=== PATIENT | female | born 1945 | race Caucasian/White ===

== ENCOUNTER → 2020-01-07 | Outpatient (CLI) | payer OTHER, MEDICARE ==
[~2020-01-07] MED LIST: ASPIR-TRIN325 MG PO; ATENOLOL 50MG T50 M1 PO; CARVEDILOL12.5 MG PO; DILTIAZEM 24HR240 M1 PO; ELIQUIS5 MG PO; KLOR-CON 1010 MEQ PO; METFORMIN HCL500 M1 PO; PACERONE 200 M200 M1 PO; TORSEMIDE20 MG PO
== END ==
LOC: SJCVC 11:33
DX: I45.10 Unspecified right bundle-branch block (principal); R94.31 Abnormal electrocardiogram [ECG] [EKG]; I48.0 Paroxysmal atrial fibrillation; I11.0 Hypertensive heart disease with heart failure; I50.33 Acute on chronic diastolic (congestive) heart failure; E78.5 Hyperlipidemia, unspecified; E11.9 Type 2 diabetes mellitus without complications; Z79.82 Long term (current) use of aspirin; Z79.899 Other long term (current) drug therapy

== ENCOUNTER 2020-01-09 11:24 | Inpatient (IN) | payer OTHER, MEDICARE ==
[~2020-01-09] VITALS: Ht 154.9 cm; Wt 69.0 kg
[2020-01-09] VITALS (29 sets, daily range): BP systolic 72–141; BP diastolic 24–77
--- NOTE | ~2020-01-09 | HC ---
[facility] [place] [address] CONSULTATION Name: JOSHUA MCCLOUD Room #: 241-P [facility] IN .R.#: [id number] Admission: 01/09/20 Attend Phys: Alphonse Cross MD Discharge: Date of : 41 Report #: [id number] THIS REPORT FOR: cc: Georgette West MD,Russ Prieto MD, MD ~ CC: Alphonse West DATE OF SERVICE: 01/16/2020 HISTORY OF PRESENT ILLNESS: The patient is a 74-year-old white female with atrial fibrillation diagnosis an outpatient tried chemical conversion, developed problems with increasing weakness, mental status changes, severe bradycardia, required transient pacing and was admitted to [facility]. She was intubated, pressors were added. She was placed on IV amiodarone. She underwent attempted cardioversion, but remains in atrial fibrillation. She is diagnosed with sick sinus syndrome. She has been extubated, but is currently on a nonrebreather. She also is being treated for acute on chronic diastolic heart failure. We are seeing her in rehabilitation medicine consultation. PAST MEDICAL HISTORY: As noted above includes hypertension. HABITS: She is a nonsmoker. ALLERGIES: No known drug allergies. MEDICATIONS: Please see the full medication listing. SOCIAL HISTORY: She lives in [place] house alone. Her son stays with her 5 days a week when he works at [employer]. He otherwise lives in [place]. She previous to this had been ambulatory without gait aids, driving in the community. There are 2 steps in. There are other involved family here as well. Review of systems not performed. On examination, the patient currently has a nonrebreather on. Nursing notes that she tends to be a mouth breather. She underwent the attempted cardioversion earlier this morning. She currently is in the PCU and has a heart rate of 35. Temperature 98.2, respirations last noted to be 30, blood pressure 117/42. I just did a very limited examination. She is alert, conversant. Defers most questions to her son. Limited testing of the upper extremities. Some diffuse weakness. Tone appeared to be intact. Lower extremities, limited examination, diffuse weakness. Tone appeared to be intact. I did not assess her function. ASSESSMENT: A 74-year-old female with the following problem list: 1. Severe bradycardia. There is discussion of possible cardiac defibrillator [facility] [address] [place] [address] CONSULTATION Name: JOSHUA MCCLOUD Room #: 241-P ADM IN ..#: [id number] Admission: 01/09/20 Attend Phys: Alphnose Cross MD Discharge: Date of : 41 Report #: [id number] placement. 2. Sick sinus syndrome. 3. Acute hypoxic respiratory failure, which did resolve. 4. Hypotension. 5. Atrial fibrillation, on Cardizem drip. 6. Chronic anticoagulation with Eliquis. 7. Hypertension. PLAN: Discussion with the son. They are interested in some rehabilitation therapies as the patient further medically stabilizes. They note that she appears to be considerably weaker with everything that she has been through with medical complexity with generalized debilitation. At this point, we will follow along with you regarding her rehab therapy needs as she medically stabilizes. Thank you for asking us to assist in this patient's care. By: [id number] Russ Cruz MD /PMT
[2020-01-09 11:55] LABS: ABSOLUTE NEUTROPHILS 9.8 thou/uL (1.4-8.2); BASOPHILS 0.7 % (0.0-2.0); EOSINOPHILS 0.5 % (0.0-3.0); HEMATOCRIT 32.2 % (37.0-47.0); HEMOGLOBIN 10.1 gm/dL (12.0-15.0); LYMPHOCYTES 15.8 % (24.0-44.0); MCH 28.2 pg (26.0-34.0); MCHC 31.5 g/dL (28.0-37.0); MCV 89.6 fL (80.0-100.0); MONOCYTES 6.7 % (1.0-8.0); PLATELET COUNT 235 thou/uL (150-400); POLYS 76.3 % (36.0-66.0); RBC 3.59 mil/uL (4.20-5.00); RDW 15.6 % (10.5-14.5); WBC 12.8 thou/uL (4.0-11.0)
[2020-01-09 12:01] LABS: ANION GAP 9 mmol/L (7-16); BUN 54 mg/dL (7-18); CHLORIDE 92 mmol/L (98-107); CO2 26 mmol/L (21-32); CREATININE 1.8 mg/dL (0.6-1.0); GLUCOSE 214 mg/dL (74-106); POTASSIUM 4.3 mmol/L (3.5-5.1); SODIUM 127 mmol/L (136-145)
[2020-01-09 12:08] LABS: TROPONIN-I <0.06 ng/mL (<0.06)
[2020-01-09 12:34] LABS: ANISOCYTOSIS 1+
[2020-01-09 12:50] LABS: BE(vivo) -8.4 mmol/L (-2 to +3); HCO3 18.5 mmol/L (22.0-26.0); PCO2 43.7 mmHg (35.0-45.0); PO2 350.3 mmHg (80.0-100.0); pH 7.245 (7.360-7.450); sO2 99.7 % (92.0-98.0)
--- NOTE | 2020-01-09 15:09 | 2DMMODE ---
[facility] [place], [place] [address] 2 D/M-MODE ECHOCARDIOGRAM Name: JOSHUA MCCLOUD Room #: 170-12 ADM IN M.R.#: [id number] Admission: 01/09/20 Attend Phys: Alphonse Cross MD Discharge: Date of : 41 Report #: [id number] THIS REPORT FOR: cc: Georgette West MD, Paula V. MD Lammoglia, Francisco J. MD ~ APPROVED REPORT Study performed: 01/09/2020 13:09:23 EXAM: Comprehensive 2D, Doppler, and color-flow Echocardiogram Patient Location: ER Room #: 12 Status: routine BSA: 1.50 HR: 51 bpm BP: 72/36 mmHg Rhythm: Bradycardia/Afib Other Information Study Quality: Good/Patient on vent Indications Bradycardia, Atrial fib. 2D Dimensions RVDd: 43.91 mm IVSd: 12.00 (7-11mm) LVOT Diam: 18.00 (18-24mm) LVDd: 38.00 mm PWd: 12.00 (7-11mm) Ascending Ao: 31.20 (22-36mm) LVDs: 26.89 (25-40mm) Aortic Root: 25.94 mm Volumes Left Atrial Volume (Systole) Single Plane 4CH: 61.44 mL Single Plane 2CH: 85.59 mL LA ESV Index: 53.00 mL/m2 Aortic Valve AoV Peak Aquilino.: 1.47 m/s AO Peak Gr.: 8.63 mmHg LVOT Max P.41 mmHg LVOT Max V: 1.05 m/s MIKE Vmax: 1.81 cm2 [facility] [address] [place] [address] 2 D/M-MODE ECHOCARDIOGRAM Name: JOSHUA MCCLOUD Room #: 170-12 ADM IN ..#: [id number] Admission: 01/09/20 Attend Phys: Alphonse Cross MD Discharge: Date of : 41 Report #: [id number] Mitral Valve MV Decel. Time: 228.53 ms MV E Max Aquilino.: 1.15 m/s Pulmonary Valve PV Peak Aquilino.: 0.49 m/s PV Peak Gr.: 0.96 mmHg Tricuspid Valve TR Peak Aquilino.: 2.21 m/s RAP Estimate: 15.00 mmHg TR Peak Gr.: 20.00 mmHg PA Pressure: 35.00 mmHg Left Ventricle The left ventricle is normal size. There is normal LV segmental wall motion. Mild concentric left ventricular hypertrophy. Left ventricular systolic function is normal. LVEF is 55-60%. This study is not technically sufficient to allow evaluation of the LV diastolic function due to atrial fibrillation. Right Ventricle Right ventricle is mildly dilated. The right ventricular systolic function is normal. Atria Left atrium is severely dilated. Right atrium is moderately dilated. Aortic Valve The aortic valve is normal in structure. Leaflets are mildly calcified. Trace to mild aortic regurgitation. There is no aortic valvular stenosis. Mitral Valve Mitral valve leaflets are mildly thickened. Focal calcification noted on the anterior leaflet. Mild mitral annular calcification. Moderate mitral regurgitation. Tricuspid Valve The tricuspid valve is normal in structure. Severe tricuspid regurgitation. Estimated PAP is 35mmHg. Pulmonic Valve The pulmonary valve is normal in structure. Trace pulmonic regurgitation. Great Vessels [facility] [address] [place] [address] 2 D/M-MODE ECHOCARDIOGRAM Name: JOSHUA MCCLOUD María Room #: 170-12 [facility] IN [facility].#: [id number] Admission: 01/09/20 Attend Phys: Alphonse Cross MD Discharge: Date of : 41 Report #: [id number] The aortic root is normal in size. The ascending aorta is normal in size. IVC is dilated and collapses <50% with inspiration. Pericardium There is no significant pericardial effusion. Right pleural effusion noted. <Conclusion> The left ventricle is normal size. LVEF is 55-60%. Right ventricle is mildly dilated. Left atrium is severely dilated. Right atrium is moderately dilated. The aortic valve is normal in structure. Leaflets are mildly calcified. Trace to mild aortic regurgitation. Mitral valve leaflets are mildly thickened. Focal calcification noted on the anterior leaflet. Mild mitral annular calcification. The tricuspid valve is normal in structure. Severe tricuspid regurgitation. Estimated PAP is 35mmHg. The pulmonary valve is normal in structure. Trace pulmonic regurgitation. There is no significant pericardial effusion. <ELECTRONICALLY SIGNED> By: Omar Doyle MD 01/09/20 1508 [id number] Omar Doyle MD /INF
--- NOTE | 2020-01-09 19:35 | NUR ---
RECIEVED PATIENT FROM ER ON VENTILATOR AND LEVOPHED AND DOPAMINE DRIP. AFIB ON MONITOR, RATE 110'S , SBP 130'S. DOPAMINE TITRATED DOWN. B WRIST RESTRAINTS WITH CURRENT ORDER. NODS HEAD YES/NO APPROPRIATELY. MOVES ALL EXTREMITIES.
--- NOTE | 2020-01-09 20:56 | NUR ---
Pt's urine has decreased to 20 cc in this hr. I have to titrate levophed upto 20 mcg/min to maintain her BP>90 mmhg and keep MAP> 65. CVP is reading 16 with appropriate wave forms,notified ; see new order.
[2020-01-09] MEDS ORDERED: ASPIR-TRIN325 MG PO (21:23)
[2020-01-09] MEDS ORDERED: KLOR-CON 1010 MEQ PO (21:23)
[2020-01-09] MEDS ORDERED: CARVEDILOL12.5 MG PO (21:23)
[2020-01-09] MEDS ORDERED: TORSEMIDE20 MG PO (21:23)
[2020-01-09] MEDS ORDERED: METFORMIN HCL500 M1 PO (21:25)
[2020-01-09] MEDS ORDERED: DILTIAZEM 24HR240 M1 PO (21:26)
[2020-01-09] MEDS ORDERED: ELIQUIS5 MG PO (21:26)
--- NOTE | 2020-01-09 23:00 | NUR ---
Urine output hasn't been picker / packer any. No changes of lung sound or FiO2. Notified : rec to monitor for now and will re-draw labs in am.
--- NOTE | 2020-01-09 23:11 | NUR ---
PICC PROCEDURE. RISK, BENEFITS, AND ALTERNATIVE TREATMENT DISCUSSED WITH THE PATIENT'S FAMILY. COMPUTER ORDER VERIFIED AND TIME OUT COMPLETED WITH LIBORIO MARIO ED RN. PATIENT INTUBATED AT THIS TIME. TEACHING GIVEN TO THE FAMILY RELATED TO POSSIBLE COMPLICATIONS SUCH BLEEDING, INFECTION, CLOT , OR VESSEL PERFORATION. INSTRUCTION GIVEN RELATED TO CLABSI PREVENTION WITH LITERATURE PROVIDED. FAMILY VOICES UNDERSTANDING TO THE ABOVE.. TRIPLE LUMEN PICC PLACED TO RUE BRACHIAL VEIN. ONE STICK AND NO COMPLICATIONS. PATIENT ON ELOQUIS AND NEEDS TO BE ASSESSED FREQUENTLY FOR BLEEDING. PICC LENGTH =-36CM. EXTERNAL =1CM. PICC TIP VERIFIED DISTAL SVC PER CHEST XRAY. ED RN LIBORIO MARIO RN NOTIFIED OKAY TO USE PICC POST CHESTXRAY.
[2020-01-10] VITALS (93 sets, daily range): BP systolic 80–146; BP diastolic 35–81
[2020-01-10 04:55] LABS: HEMOGLOBIN 10.8 gm/dL (12.0-15.0); MCH 28.1 pg (26.0-34.0); MCHC 31.7 g/dL (28.0-37.0); MCV 88.7 fL (80.0-100.0); RBC 3.83 mil/uL (4.20-5.00); RDW 15.2 % (10.5-14.5); WBC 15.2 thou/uL (4.0-11.0)
[2020-01-10 05:31] LABS: BE(vivo) -5.5 mmol/L (-2 to +3); HCO3 19.4 mmol/L (22.0-26.0); PCO2 35.8 mmHg (35.0-45.0); PO2 111.8 mmHg (80.0-100.0); pH 7.351 (7.360-7.450); sO2 97.9 % (92.0-98.0)
[2020-01-10 06:05] LABS: ANION GAP 10 mmol/L (7-16); BUN 55 mg/dL (7-18); CALCIUM 7.7 mg/dL (8.5-10.1); CHLORIDE 97 mmol/L (98-107); CO2 24 mmol/L (21-32); CREATININE 1.5 mg/dL (0.6-1.0); GLUCOSE 144 mg/dL (74-106); POTASSIUM 3.7 mmol/L (3.5-5.1); SODIUM 131 mmol/L (136-145); TROPONIN-I <0.06 ng/mL (<0.06)
--- NOTE | 2020-01-10 07:40 | NUR ---
ASSUMED OT CARE AT 0200. VSS BUT HR SOMETIMES GOES UP TO 120s FOR SOME SECONDS BUT DOES NOT SUSTAIN. PT IS INTUBATED BUT NOT SEDATED, SHE FOLLOWS COMMANDS, NODS YES AND NO TO QUESTIONS. PT HAD INADEQUATE URINE OUTPUT THIS SHIFT WITH TOTAL OF 250ML BUT DR MENDEZ IS AWARE. PT'S LEVO DRIP TITRATED DOWN TO 5 AND PT IS TOLERATING WELL. PT IS STABLE NOW AND IS SLOWLY PROGRESSING TOWARDS POC.
--- NOTE | 2020-01-10 08:30 | NUR ---
pt on vent, eyes open and able to answere yes and no question will cont following as needed for dc needs.
[2020-01-10 11:06] LABS: BE(vivo) -5.9 mmol/L (-2 to +3); HCO3 19.6 mmol/L (22.0-26.0); PCO2 38.3 mmHg (35.0-45.0); PO2 104.4 mmHg (80.0-100.0); sO2 97.4 % (92.0-98.0)
[2020-01-10 11:09] LABS: pH 7.326 (7.360-7.450)
--- NOTE | 2020-01-10 12:32 | NUR ---
cm back to see if family at bedside to visit with. pt extubated, pt up in bed with daughter at bedside. nasal canula oxygen. pt a & o x 3, pt lives in house with 2 steps in from fd, no steps from garage or patio door. son myranda stays with mom during the week since he works up here at, he a nurse. independent with all ADL's, manage own medication. no hh or rehab in past"/geoff and daughter marissa. will cont following as needed for dc needs. pt and family not respective to education on home health.
--- NOTE | 2020-01-10 12:46 | NUR ---
ASSUMED CARE 0700 01/10/20 ASSESSMENTS AND VSS COMPLETE PER ICU PROTOCOL. CPAP INTIATED @ 0900, ABG COLLECTED @ 1100, DR MENDEZ PAGED AND CALLED WITH THE RESULTS OF THE ABG AND RSBI. PT EXTUBATED @ 1145, PLACED ON FACE SHIELD 45%. 1245 PT PLACED OF 2L OF 02 VIA NC, SATS 98%. PT PROGRESSING TOWARDS POC.
[2020-01-11] VITALS (20 sets, daily range): BP systolic 98–132; BP diastolic 44–94
[2020-01-11 06:20] LABS: CALCIUM 7.5 mg/dL (8.5-10.1); CREATININE 1.1 mg/dL (0.6-1.0); POTASSIUM 3.6 mmol/L (3.5-5.1)
--- NOTE | 2020-01-11 07:20 | NUR ---
ASSUME CARE 1900. PT/VITALS STABLE. DENIES ANY PAIN. TOLERATES ACTIVITY MODERATELY. AFIB NOTED ON MONITOR WITH HR BETWEEN LOW 100s AND 140s. ASSESSMENT CHARTED. PROGRESSING WELL WITH POC. NO DISTRESS NOTED THROUGH THE NIGHT. ADEQUATE REST NOTED, URINE OUTPUT ADEQUATE. BLOOD SUGARS WELL MANAGED. PLAN IS TO CONITNUE TO MONANGE AFIB AND KEEP HR CONTROLLED. POSSIBILITY OG DISCHARGING TO CCU TODAY. WILL CONTINUE TO MONITOR AND FOLLOW WITH POC
--- NOTE | 2020-01-11 08:10 | NUR ---
pt up in bed, a & o x 3, pleasant. o2 1 L/nc. no home oxygen prior to hospital, will need to see if can be weaned off o2 prior to dc, when MD feel medically stable for dc. no concerns or needs voiced during visit. will cont following as needed for dc needs.
--- NOTE | 2020-01-11 15:07 | NUR ---
PT TRANSFER TO CCU TODAY. REPORT GIVEN TO RN AT 1450. PT WORKED WITH PT TODAY, AND OT. NO BM THIS SHIFT. PLAN OF CARE IS TO INCREASE STRENGTH AND STAMNIA. O2 SATS GREATER THAN 92% ON ROOM AIR. PT PROGRESSING TOWARDS PLAN OF CARE.
[2020-01-11 15:08] LABS: KAPPA FREE LIGHT CHAINS 17.7 mg/L (3.3-19.4); KAPPA/LAMBDA RATIO 0.07 (0.26-1.65); LAMBDA FREE LIGHT CHAINS 271.4 mg/L (5.7-26.3)
--- NOTE | 2020-01-11 19:45 | NUR ---
ASSUMED CARE AT 1700, MEDS GIVEN, AFIB ON TELE. PT USED THE BATHROOM AT 1830, HR WENT UP TO 130-150s. DILTIAZEM BOLUS 5 MG GIVEN. REPORT GIVEN TO NIGHT NURSE.
[2020-01-12] VITALS (7 sets, daily range): BP systolic 101–137; BP diastolic 46–92
--- NOTE | 2020-01-12 05:51 | NUR ---
ASSUME CARE 1900. PT/VITALS STABLE. PT DENIES ANY PAIN. TOLERATES ACTIVITY WELL. UP WITH STAND BY ASSIST. ASSESSMENT CHARTED. PROGRESSING WELL WITH POC. AFIB ON MONITOR WITH HR IN THE 120s-160s. STARTED PT ON CARDIZEM DRIP RUNNING AT 5ML/HR TO RUN THROUGH THE NIGHT TO MANAGE HR. BP CHECKS DONE FREQUENTLY TO ENSURE BP WAS STAYING NORMAL. PT TOLERATING DRIP WELL AND HR BY MORNING IN LOW 100s WITH SOME JUMPS TO THE 120s AND 130s. PLAN IS TO CONTINUE TO MANAGE AFIB AND CONTROL HR. WILL CONTINUE TO MONITOR AND FOLLOW WITH POC
[2020-01-12 07:50] LABS: CALCIUM 8.7 mg/dL (8.5-10.1); CREATININE 0.9 mg/dL (0.6-1.0); POTASSIUM 3.5 mmol/L (3.5-5.1)
--- NOTE | 2020-01-12 18:24 | NUR ---
ASSUMED CARE 0700, ALERT X4, DENIES CHEST PAIN, DENIES SOB, AFIB ON TELE CONTINUES ON CARDIZEN DRIP. STAND BY ASSIST TO BATHROOM. NO BM NOTED TODAY. TOLERATING DIET, RIGHT ARM EDEMA WITH LARGE BRUISE UNERSIDE OF ARM ULTRA SOUND SCANNED NO ABNORMALITIES NOTED. OK TO USE PICC LINE. IVP PLACED IN LEFT HAND. BS MANAGED C LOW SLIDING SCALE. PT STATES SHE TAKES METFORMIN AT HOME. CALLS FOR ASSISTANCE.
[2020-01-13 00:02] VITALS: BP 119/81
[2020-01-13 05:04] VITALS: BP 120/62
--- NOTE | 2020-01-13 06:07 | NUR ---
ASSUMED CARE OF PATIENT AT 1900. ASSESSMENT CHARTED. TELE STRIPS PRINTED AND PLACED ON CHART. PATIENT IS RESTING COMFORTABLY IN CHAIR. CARDIZEM DRIP RUNNING WITH PATIENT IN AFIB, CONSISTENTLY IN THE 110'S. PATIENT HAD AN EPISODE OF ANXIETY AND FELT THOUGH" THE ROOM WAS CLOSING IN". 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 SHE DENIED THE NEED OF WANTING ME TO ASK FOR ANY MED FOR ANXIETY. SHE IS MORE COMFORTABLE AFTER BEING PLACED ON 1 L OF O2 AND MUCH DISCUSSION AND COMPANY. PATIENT TO CONTINUE WITH POC.
[2020-01-13 07:48] VITALS: BP 107/52
[2020-01-13 11:35] VITALS: BP 136/63
--- NOTE | 2020-01-13 15:42 | NUR ---
ASSUMED CARE 0700. ALERT X4,ANXIETY OVER BEING IN HOSPITAL, VOICED SHE HOPES TO GO HOME. CONTINUES ON CARDIAC DRIP. BS MANAGED WITH MEDICATIOS, EDUCATED AND ENCOURAGED PATIENT TO ELEVATE LOWER EXTREMITIES, RIGHT ARM EDEMA IMPROVED. AFIB ON TELE, STAND BY ASSIST TO BATHROOM. PASSING GAS NO BM AT THIS TIME. NO NEED TO O2 AT THIS TIME. DENIES CHEST PAIN, DENIES SOB. FALL PRECAUTIONS IN PLACE. CALLS FOR ASSISTANCE.
[2020-01-13 15:51] VITALS: BP 140/76
[2020-01-13 20:10] VITALS: BP 124/73
[2020-01-14 04:45] VITALS: BP 119/75
--- NOTE | 2020-01-14 04:53 | NUR ---
ASSUMED PT CARE AROUND 1900. PT UP IN CHAIR WATCHING TELEVISION. PT STATED SHE FELT 'LOOPY' FROM XANAX THAT WAS GIVEN EARLIER. PT MEDICATION GIVEN AND PT REQUESTED TO STAY IN CHAIR TO SLEEP. PT C/O NO CHEST PAIN OR N/V/D. WILL CONTINUE TO MONITOR PT THRU SHIFT.
[2020-01-14 07:54] VITALS: BP 139/64
--- NOTE | 2020-01-14 09:29 | TEE ---
[facility] [place] [address] TRANSESOPHAGEAL ECHOCARDIOGRAM Name: JOSHUA MCCLOUD Room #: 204-P [facility] IN M.R.#: [id number] Admission: 01/09/20 Attend Phys: Alphonse Cross MD Discharge: Date of : 41 Report #: [id number] THIS REPORT FOR: cc: Georgette West MD, Paula V. MD Lundgren, Craig H. MD [facility] ~ APPROVED REPORT Study performed: 01/14/2020 08:26:05 EXAM: Comprehensive 2D, Doppler, and color-flow Echocardiogram Patient Location: [facility] Room #: 204 Status: routine BSA: 1.61 HR: 116 bpm BP: 149/67 mmHg Rhythm: Atrial Fibrillation Other Information Study Quality: Good Indications Atrial Fibrillation Cardioversion Echo Enhancing Agent Indication: Rule out Shunt Agent(s) / Amount(s) Used: Agitated Saline 6 cc Procedure After obtaining informed consent, patient underwent transesophageal echo in the [employer]. Type of Sedation : Conscious Sedation Sedation was administered by Tish Lopez RN. Sedation was achieved intravenously with: Versed (3) Fentanyl (50) Transesophageal probe was inserted and advanced into esophagus without difficulty by Kris Mauro MD. The CARITO was performed without complications. Synchronized Cardioversion attempted: Successful Synchronized Cardioversion acheived with 120 Joules after 1 attempt(s). [facility] [address] [place] [address] TRANSESOPHAGEAL ECHOCARDIOGRAM Name: JOSHUA MCCLOUD Room #: 204-P ADM IN M.R.#: [id number] Admission: 01/09/20 Attend Phys: Alphonse Cross MD Discharge: Date of : 43 Report #: [id number] Rhythm following Synchronized Cardioversion: Normal Sinus Rhythm Throughout the procedure, the blood pressure, pulse oximetry, cardiac rhythm, and rate were monitored. The patient tolerated the procedure without adverse effects. Recovery from conscious sedation was uneventful and vital signs were stable. Left Ventricle The left ventricle is normal size. There is normal LV segmental wall motion. There is normal left ventricular wall thickness. Left ventricular systolic function is normal. LVEF is 55-60%. Right Ventricle The right ventricle is normal size. The right ventricular systolic function is normal. Atria Left atrium is severely dilated. No thrombus is visualized in the left atrium or appendage. No shunting by contrast bubble injection Right atrium is moderately dilated. Aortic Valve Aortic valve is mildly calcified. Trace aortic regurgitation. There is no aortic valvular stenosis. Mitral Valve Focal calcification on the anterior mitral leaflet. Moderate mitral regurgitation. No evidence of mitral valve stenosis. Tricuspid Valve The tricuspid valve is normal in structure. Severe tricuspid regurgitation. Pulmonic Valve The pulmonary valve is normal in structure. There is no pulmonic valvular regurgitation. Great Vessels Mild-moderate atherosclerotic plaquing is present in the descending aorta. IVC is normal in size and collapses >50% with inspiration. Pericardium There is no pericardial effusion. <Conclusion> [facility] [address] [place] [address] TRANSESOPHAGEAL ECHOCARDIOGRAM Name: JOSHUA MCCLOUD Room #: 204-P ADM IN M.R.#: [id number] Admission: 01/09/20 Attend Phys: Alphonse Cross MD Discharge: Date of : 41 Report #: [id number] Left ventricular systolic function is normal. LVEF is 55-60%. Both atria are dilated. No thrombus is visualized in the left atrium or appendage. No shunting by contrast bubble injection Aortic valve is mildly calcified. Trace aortic regurgitation, no stenosis Focal calcification on the anterior mitral leaflet. Moderate mitral regurgitation. The tricuspid valve is normal in structure. Severe tricuspid regurgitation. Mild-moderate atherosclerotic plaquing is present in the descending aorta. There is no pericardial effusion. Successful cardioversion of atrial fibrillation to sinus rhythm following a single 120J biphasic synchronous shock <ELECTRONICALLY SIGNED> By: Kris Mauro MD, FACC 01/14/20926 6 6 Kris Mauro MD, FACC /INF
--- NOTE | 2020-01-14 13:28 | NUR ---
pt noted to be in atrial fibrillation. Dr. Mauro notified. Order received to restart cardizem drip at 15 mg/hr. done per this rn
[2020-01-14 16:47] VITALS: BP 131/56
--- NOTE | 2020-01-14 17:11 | NUR ---
ASSUMED CARE OF PT AT SHIFT CHANGE. ASSESSEMENT CHARTED. MEDS GIVEN PER JAN. PT OFF UNIT ALL MORNING, RETURNING EARLY AFTERNOON FROM CARIOVERSION, WHICH WAS UNSUCCESSFUL. PT REMAINS IN AFIB, WITH RATES 100-150. CARDIZEM DRIP AT 20ML/HR. PT A&OX4, NO C/O PAIN. WILL CONTINUE TO MONITOR AND FOLLOW POC.
[2020-01-14 20:26] VITALS: BP 124/58
[2020-01-15] VITALS (7 sets, daily range): BP systolic 108–142; BP diastolic 47–92
--- NOTE | 2020-01-15 04:25 | NUR ---
ASSESSMENT DOCUMENTED.PT BEEN RESTING IN NO ACUTE DISTRESS.A/OX4.VSS.PT REMAINS IN AFIB ON MONITOR.HR ELEVATED WITH ACTIVITIES UPTO 15OS.ON CARDIZEM DRIP AT 15MG MOST OF THE NOC,AMIODARONE GIVEN ORALLY ORDERED.BLOOD PRESSUR WNL.RA W/O RESP DISTRESS.AMBULATES TO BR TO VOID W/ASSIST,GAIT SLOW AND STEADY.DENIES PAIN.PREFEREED TO SLEEP IN THE CHAIR,ENCOURAGED TO ELEVATE MARYANN LES.PT DENIES ANY NEEDS AT THIS TIME.WILL CONT TO MONITOR PER POC.
--- NOTE | 2020-01-15 18:03 | NUR ---
ASSUMED CARE PT SHIFT CHANGE. ASSESSMENTS CHARTED. MEDS GIVEN PER JAN. PT ALERT AND ORIENTED. VSS. DENIES PAIN. O2 SATS WNL ON ROOM AIR. AT APPROX 1415 PT HR NICK/AFIB DOWN IN LOW 40S. DILT GTT STOPPED. PT EXPRESSED BEING LIGHTHEADED, ANXIOUS, AND SOB. O2 PUT ON PT WHICH SEEMED TO RELIEVE ANXIETY. CARDIOLOGY NOTIFIED REGARDING LOW HR WITH SYMPTOMS- ORDERS RECEIVED. PT CURRENTLY RESTING IN BED EATING DINNER. HR STABLE IN HIGH 50S. PT NO LONGER SYMPTOMATIC. PLAN IS FOR CARDIOVERSION IN AM. SON UPDATED ON POC. WILL CONT TO MONITOR PT AND FOLLOW POC.
[2020-01-16] VITALS (31 sets, daily range): BP systolic 85–141; BP diastolic 29–59
--- NOTE | 2020-01-16 05:07 | NUR ---
ASSUMED PT CARE AT 1900. NO SIGN OF DISTRESS NOTED IN PT. PT IS DROWSY BUT WAKES UP UPON ARROUSAL. PT IS ALERT AND ORIENTED. DENIES ANY PAIN. NPO AFTER MIDNIGHT FOR A CARDIOVERSION. ASSESSMENT COMPLETED AND DOCUMENTED. SCHEDULED MEDS ADMINISTERED TO PT. TOLERATED PO INTAKE. HEART RATE STABLE BUT STILL AFIB. DENIES ANY FURTHER NEEDS AT THIS TIME.
[2020-01-16 06:48] LABS: CALCIUM 8.6 mg/dL (8.5-10.1); CREATININE 1.5 mg/dL (0.6-1.0)
[2020-01-16 06:55] LABS: POTASSIUM 6.4 mmol/L (3.5-5.1)
[2020-01-16 12:26] LABS: BE(vivo) -9.9 mmol/L (-2 to +3); HCO3 19.4 mmol/L (22.0-26.0); PCO2 58.4 mmHg (35.0-45.0); PO2 73.3 mmHg (80.0-100.0); sO2 89.5 % (92.0-98.0)
--- NOTE | 2020-01-16 13:52 | NUR ---
PT LEFT UNIT THIS AM FOR CARDIOVERSION PRIOR TO THIS NURSE ASSUMING CARE. PT RETURNED APPROX 1000. SB ON TELE WITH HR IN 30s. PT DENIED SOA BUT O2 SATS WERE IN 80s. PT WAS ALSO VERY DROWSY POST PROCEDURE SEDATIVES. TITRATING O2 NC WAS NOT EFFECTIVE IN BRINGING O2 SATS TO NORMAL LIMITS SO MASK WAS PLACED AND PT O2 SAT NORMALIZED. CXR OBTAINED. ABNORMALITIES WERE COMMUNICATED TO DR ERAZO WELL CLINICAL CHANGES NOTED SINCE PT'S RETURN FROM PROCEDURE. FAMILY AT BEDSIDE. UPDATED WITH NEW ORDERS OFTEN POSSIBLE. MEDS GIVEN FOR HYPERKALEMIA CORRECTION. DELAYED INITIALLY DUE TO INSULIN CLARIFICATION NEEDED. GIVEN AT THIS TIME. URINARY CATH PLACED WITHOUT ISSUE DUE TO URINE RETENTION AND NEED FOR ACCURATE I&O. URINE SPECIMEN UNCOLLECTED AND DR ERAZO AWARE. PT REMAINED SYMPTOMATIC OF OVERSEDATION AND BRADYCARDIA. ORDERS TO TRANSFER TO ICU OBTAINED AFTER CRITICAL GASES WERE CALLED. DR ERAZO NOTIFIED OF GASES. REPORT CALLED TO ICU NURSE. NO QUESTIONS NOTED UPON TRANSFER. HR REMAINED NICK BUT ALL OTHER VITAL SIGNS WERE WNL AT TIME OF TRANSFER OF CARE. FAMILY HAS SPOKEN TO ICU NURSE AT BEDSIDE. THEY DENIED QUESTIONS OR CONCERNS REGARDING POC PRIOR TO LEAVING.
--- NOTE | 2020-01-16 14:07 | NUR ---
PT arrived to ICU 241 at 1350 via bed with 2 RN escort. PT was on 15L of O2 and appeared drowsy. VSS. See re-assessment for further details. Son and daughter were present upon transfer. PT was transferred from simple mask to BIPAP. PT stating "I don't want the breathing tube" multiple times. PT educated on BIPAP and was told she would not be intubated at this time. High fall precautions are in place. Call light within reach. Nurse will continue to monitor.
--- NOTE | 2020-01-16 15:36 | NUR ---
pt transferred back to icu this afternoon. changes in labs, bp and pulse. pt on bipap with eyes closed, bedside nurse in room and will let pt rest. will cont dcp as needed. she has been on vent last time she was in icu before transferred out to ccu.
[2020-01-16 16:08] LABS: URINE BILIRUBIN NEGATIVE (Negative); URINE BLOOD 2+ (Negative); URINE CLARITY CLEAR; URINE COLOR YELLOW; URINE GLUCOSE-RANDOM* NEGATIVE (Negative); URINE KETONES NEGATIVE (Negative); URINE LEUKOCYTES 1+ (Negative); URINE NITRITE NEGATIVE (Negative); URINE PROTEIN (DIPSTICK) 1+ (Negative); URINE UROBILINOGEN 0.2 E.U./dl (0.2-1.0)
[2020-01-16 16:23] LABS: CALCIUM 8.5 mg/dL (8.5-10.1); CREATININE 1.7 mg/dL (0.6-1.0); SQUAMOUS 0-3 Few /LPF (0-3)
[2020-01-16 16:24] LABS: AMORPHOUS URATES Moderate /LPF (None Seen); CASTS None Seen /LPF (None Seen); URINE RBC 0-2 Rare /HPF (0-2)
[2020-01-16 16:25] LABS: POTASSIUM 5.1 mmol/L (3.5-5.1)
[2020-01-16 18:55] LABS: BE(vivo) -5.2 mmol/L (-2 to +3); HCO3 21.5 mmol/L (22.0-26.0); PO2 90.1 mmHg (80.0-100.0); sO2 95.8 % (92.0-98.0)
[2020-01-16 18:56] LABS: pH 7.278 (7.360-7.450)
--- NOTE | 2020-01-16 20:57 | NUR ---
Assumed pt care at 1900. Pt tolerating BIPAP W/ resps even/nonlabored, resting comfortably. Arouses easily. Heart rhythm Afib w/ rate in low 100s, BP with MAP of 55 at this time. Dopamine off per orders to day RN due to tachycardia. Pt's son, Abdoul, called and updated on POC and plan for thoracentesis and possible PM tomorrow. States he will have to work and to call him with any changes. Bed low and locked, bed alarm activated for pt safety. Will continue to monitor.
[2020-01-17] VITALS (66 sets, daily range): BP systolic 96–136; BP diastolic 42–73
[2020-01-17 05:17] LABS: BE(vivo) -4.4 mmol/L (-2 to +3); HCO3 22.9 mmol/L (22.0-26.0); PCO2 51.5 mmHg (35.0-45.0); PO2 103.8 mmHg (80.0-100.0); sO2 96.9 % (92.0-98.0)
[2020-01-17 05:18] LABS: pH 7.265 (7.360-7.450)
[2020-01-17 05:53] LABS: ABSOLUTE NEUTROPHILS 12.9 thou/uL (1.4-8.2); BASOPHILS 0.4 % (0.0-2.0); HEMATOCRIT 35.1 % (37.0-47.0); HEMOGLOBIN 10.8 gm/dL (12.0-15.0); LYMPHOCYTES 7.7 % (24.0-44.0); MCH 27.9 pg (26.0-34.0); MCHC 30.8 g/dL (28.0-37.0); MCV 90.4 fL (80.0-100.0); MONOCYTES 11.6 % (1.0-8.0); PLATELET COUNT 237 thou/uL (150-400); POLYS 80.3 % (36.0-66.0); RBC 3.88 mil/uL (4.20-5.00); WBC 16.1 thou/uL (4.0-11.0)
[2020-01-17 05:54] LABS: CALCIUM 7.9 mg/dL (8.5-10.1); CREATININE 1.6 mg/dL (0.6-1.0); POTASSIUM 4.6 mmol/L (3.5-5.1)
--- NOTE | 2020-01-17 07:18 | NUR ---
PATIENT TRANSFERRED TO ICU DUE TO A CHANGE IN MEDICAL STATUS. WILL AWAIT NEW OT ORDERS WHEN MEDICALLY APPROPRIATE.
--- NOTE | 2020-01-17 08:04 | NUR ---
Pt became more alert/awake through the night & watching TV. Off of BIPAP at 02:30. AM gas noted & called to Dr. Prescott, pt placed back on BIPAP. BP down after Dopamine was discontinued by the day RN due to tachycardia. Cardiology notifed and Levophed initiated. Requiring 4 mcg/min to keep MAP > 60 mm/hg. See reassessments and VS for details. Family updated on POC.
--- NOTE | 2020-01-17 08:31 | NUR ---
PT PLACED ON HOLD FROM P.T. SECONDARY TO DECLINE IN MEDICAL STATUS WITH TX TO ICU. REQUEST NEW P.T. ORDERS ONCE PT IS STABLE TO PARTICIPATE IN THERAPEUTIC INTERVENTIONS.
[2020-01-17 11:37] LABS: INR 1.5; PROTIME 15.8 Seconds (9.3-11.4)
--- NOTE | 2020-01-17 13:15 | NUR ---
Dr Cervantes here and performed ultrasound guided thoracentesis. Removed approx 1.3 liters. Pt was taken off BIPAP by Abdoul from RT at 1255 and placed on a 40 venti mask. Bandaid placed at the needle site by [employer] product support technician. Pt awake and alert. Remains in atrial fibrillation. Will try to wean Levophed as BP tolerates.
[2020-01-18] VITALS (45 sets, daily range): BP systolic 104–130; BP diastolic 32–71
[2020-01-18 05:05] LABS: CALCIUM 8.2 mg/dL (8.5-10.1); CREATININE 1.2 mg/dL (0.6-1.0); POTASSIUM 3.8 mmol/L (3.5-5.1)
[2020-01-18 05:11] LABS: BE(vivo) -2.1 mmol/L (-2 to +3); HCO3 24.1 mmol/L (22.0-26.0); PCO2 47.6 mmHg (35.0-45.0); PO2 81.5 mmHg (80.0-100.0); sO2 95.1 % (92.0-98.0)
[2020-01-18 05:12] LABS: pH 7.323 (7.360-7.450)
--- NOTE | 2020-01-18 06:53 | NUR ---
PT IN AFIB , HEART RATE 100 TO 120, OCCASIONAL SPIKES TO 130'S BUT DOES NOT SUSTAIN. TITRATED LEVOPHED AND TURNED OFF AT 0600. PT STABLE ON 3L BY NASAL CANNULA, NO EVENTS OVERNIGHT.
--- NOTE | 2020-01-18 17:09 | NUR ---
ASSUMED CARE OF PT AT 0645. OFF PRESSORS. REORDER THERAPY. OK TO TX PER DOCS. C/O UPSET STOMACH ONCE BM STARTED. TX TO 2N WITH DAUGHTER AT BEDSIDE.
--- NOTE | 2020-01-18 17:32 | NUR ---
PT ARRIVED TO UNIT FROM ICU. ALERT AND ORIENTED. VSS. DENIES PAIN. PT UNCOMFORTABLE, WANTING REPOSITIONING .SWEET CATH IN PLACE. WILL AFIB CONTROLLED ON MONITOR. PT DENIES SOB/CP. O2 SATS WNL ON 3L. DAUGHTER AT BEDSIDE. PLAN IS FOR PT TO POSSIBLY HAVE PACEMAKER PLACED TUESDAY OR TUESDAY. PT AND FAMILY AWARE OF POC. PT CURRENTLY EATING DINNER. DENIES NEEDS. WILL CONTINUE TO MONITOR.
[2020-01-19 05:00] VITALS: BP 125/60
[2020-01-19 05:06] LABS: ABSOLUTE NEUTROPHILS 9.2 thou/uL (1.4-8.2); BASOPHILS 0.4 % (0.0-2.0); EOSINOPHILS 0.2 % (0.0-3.0); HEMATOCRIT 31.4 % (37.0-47.0); HEMOGLOBIN 9.9 gm/dL (12.0-15.0); LYMPHOCYTES 9.7 % (24.0-44.0); MCH 28.1 pg (26.0-34.0); MCHC 31.7 g/dL (28.0-37.0); MCV 88.8 fL (80.0-100.0); MONOCYTES 9.7 % (1.0-8.0); PLATELET COUNT 189 thou/uL (150-400); RBC 3.53 mil/uL (4.20-5.00); RDW 16.1 % (10.5-14.5); WBC 11.5 thou/uL (4.0-11.0)
[2020-01-19 05:19] LABS: CALCIUM 7.8 mg/dL (8.5-10.1); CREATININE 0.9 mg/dL (0.6-1.0); MAGNESIUM 1.5 mg/dL (1.8-2.4); POTASSIUM 3.6 mmol/L (3.5-5.1)
[2020-01-19 07:32] VITALS: BP 115/53
--- NOTE | 2020-01-19 08:49 | NUR ---
ASSUME CARE 1900. PT/VITALS STABLE. PT ENOCURAGED TO INCREASE ACTIVITY LEVEL. GENERALIZED DEPENDENT EDEMA NOTED. ASSESSMENT CHARTED. PROGRESSING MODERATELY WITH POC BUT WOULD BENEFIT FROM PT/OT. STILL AFIB ON MONITRO ITH HR MOSTLY STABLE IN 80s TO LOW 100s. PLAN IS PACE MAKER ON TUESDAY OR TUESDAY. NO DISTRESS NOTED THROUGH THE NIGHT. PT IS INCONTINENT OF STOOL. WILL CONTINUE TO MONITOR AND FOLLOW WIHT POC
[2020-01-19 09:42] LABS: CLARITY CLOUDY; COLOR YELLOW; SOURCE THORACENTESIS
[2020-01-19 09:49] LABS: BF NUCLEATED CELLS 336; BF RBC 928
[2020-01-19 10:31] LABS: BF NEUTROPHILS 2
[2020-01-19 10:32] LABS: BF MACROPHAGE 27
[2020-01-19 11:21] VITALS: BP 121/63
[2020-01-19 15:23] VITALS: BP 97/68
--- NOTE | 2020-01-19 17:58 | NUR ---
ASSUMMED PT CARE AT APPROXIMATELY 0700. PT A&O X4. ASSESSMENT CHARTED. FALL PRECAUTIONS IN PLACE. PT DENIES HAVING CONCERNS. PT DENIES HAVING CHEST PAIN. PT DENIES HAVING ACUTE PAIN. PT DENIES HAVING CHEST PAIN. PT STATED SHE HAS SOB ON EXERSION. PT O2 SAT STABLE. TIRATED O2 NC DOWN PER ORDER. PT O2 SAT STABLE. AT 1 L O2 NC. FOLLOWED ELECTROLYTE PROTOCOL. PT HAVING FREQUENT LOOSE BM. PT HAD INCREASE IN PERIPHERAL EDEMA. INFORMED DR. ERAZO. DR. ERAZO ORDERED NEW ORDERS. NEW ORDERS IMPLEMENTED. EDUCATED PT AND PT'S FAMILY ABOUT POC. PT AND PT'S FAMILY STATED UNDERSTANDING AND DENIED HAVING FURTHER CONCERNS. EDUCATED PT ABOUT INCENTIVE SPIROMETER. ENCOURAGED PT TO USE INCENTIVE SPIROMETER. ENCOURAGED PT TO MOVE TO CHAIR TO SIT UP. PT REFUSED MULTIPLE TIMES AND STATED THAT SHE WANTED TO STAY IN BED. PT COMFORTABLE IN BED. VITAL SIGNS STABLE. BLOOD SUGARS STABLE. PT DENIES HAVING FURTHER CONCERNS.
[2020-01-19 18:08] LABS: BODY FLUID ALBUMIN 1.4 g/dL (Not Estab.); BODY FLUID AMYLASE 7 U/L (()); BODY FLUID GLUCOSE 167 mg/dL (()); BODY FLUID LDH 94 IU/L (())
[2020-01-19 20:53] VITALS: BP 143/83
[2020-01-20] VITALS (8 sets, daily range): BP systolic 120–146; BP diastolic 41–67
--- NOTE | 2020-01-20 06:18 | NUR ---
ASSUME CARE 1900. PT/VITALS STABLE. DENIES ANY PAIN. POOR TOLERANCE TO ACTIVITY. PT LACKS DESIRE TO MOVE OR BE ACTIVE. NEEDS ENCOURAGEMENT TO GET OUT OF BED AND DE STUFF FOR HERSELF. EDUCATED PT ON THE NEED TO BE ACTIVE TO HELP WITH CIRCULATION AND REDUCE EDEMA WELL IMPROVE OVERALL HEALTH. ASSESSMENT CHARTED. PROGRESSING MODERATELY WITH POC. AFIB ON MONITOR WITH RATE IN ONE-TEENS TO 120s. ONETIME DOSE OF LOPRESSOR 2.5MG GIVEN FOR HR SUSTAINING IN 120s-140s. RATE DOWN TO LOW 100s AND ONE-TEENS AND SUSTAINING. PLAN IS PACEMAKER PLACEMENT ON TUESDAY. WILL CONTINUE TO MONITOR AND FOLLOW WITH POC
--- NOTE | 2020-01-20 20:42 | NUR ---
[facility] PT A&O X4. ASSESSMENT CHARTED. FALL PRECAUTIONS IN PLACE. PT DENIES HAVING CHEST PAIN. PT DENIES HAVING ACUTE PAIN. PT STATES SHE HAS SOB ON EXERSION. O2 SAT STABLE. PT EDUCATED ABOUT POC. PT STATED UNDERSTANDING AND DENIED HAVING FURTHER CONCERNS. PT UP TO CHAIR THROUGOUT SHIFT. ELECTROLYTE PROTOCOL FOLLOWED. BLOOD SUGARS STABLE. NOTIFIED DR. MCDONOUGH OF PT'S SUSTAINED ELEVATED HR. DR. MCDONOUGH STATED TO START CARDIZEM DRIP. IMPLEMENTED CARDIZEM DRIP. PT'S HR AND VITAL SIGNS STABLE. PT COMFORTABLE IN BED. PT DENIES HAVING FURTHER CONCERNS.
[2020-01-21] VITALS (7 sets, daily range): BP systolic 96–137; BP diastolic 31–63
[2020-01-21 05:16] LABS: CREATININE 0.7 mg/dL (0.6-1.0)
[2020-01-21 05:19] LABS: POTASSIUM 2.3 mmol/L (3.5-5.1)
--- NOTE | 2020-01-21 07:21 | NUR ---
patients cares were assumed at shift change. patient was assessed and meds were passed. in my commit to sit the patient reveals her water pil was increased and she believes that is what made her ill. her potassium was 2.3 this morning 20mg potassium was given and passed to have a redraw four hours after med is finished. patient was able to sleep approx. 5 ours last night. hourly rounding was done.
--- NOTE | 2020-01-21 09:49 | CATHLAB ---
[facility] [place] [address] INVASIVE PROCEDURE REPORT Name: JOSHUA MCCLOUD Room #: 211-P ADM IN M.R.#: [id number] Admission: 01/09/20 Attend Phys: Alphonse Cross MD Discharge: Date of : 41 Report #: [id number] THIS REPORT FOR: cc: Georgette West MD,Kris Vizcaino MD, MD [facility] ~ CC: Alphonse West MD DATE OF SERVICE: 01/16/2020 CARDIOVERSION INDICATIONS: Atrial fibrillation. DESCRIPTION OF PROCEDURE: The potential benefits and risks of the procedure were discussed with the patient who understood. Full written and informed consent was obtained. The patient was sedated with intravenous Versed and fentanyl. 120 biphasic synchronous joules were applied to the chest with conversion of atrial fibrillation to sinus bradycardia and intermittent junctional bradycardia. She tolerated the procedure well and was transported back to her hospital room. SUMMARY: Successful cardioversion of atrial fibrillation to sinus bradycardia; intermittent junctional rhythm. <ELECTRONICALLY SIGNED> By: Kris Mauro MD, FAC 01/21/20 0949 0855 [id number] Kris Mauro MD, FACC /nt
[2020-01-21 11:27] LABS: SOURCE THORACENTESIS
[2020-01-21 12:15] LABS: CLARITY CLOUDY; COLOR YELLOW; SOURCE RIGHT CHEST
[2020-01-21 12:26] LABS: BF NUCLEATED CELLS 256; BF RBC 853
[2020-01-21 13:53] LABS: BF MACROPHAGE 27; BF NEUTROPHILS 6
--- NOTE | 2020-01-21 20:31 | NUR ---
ASSUMMED PT CARE AT APPROXIMATELY 0700. PT A&O X4. ASSESSMENT CHARTED. FALL PRECAUTIONS IN PLACE. PT DENIES HAVING CHEST PAIN. PT DENIES HAVING SOB. PT DENIES HAVING ACUTE PAIN. SWEET DC. PT AMBULATES STEADY TO COMMODE. PT HAS HAD POST SWEET REMOVAL VOID. EDUCATED PT ON POC. PT STATED UNDERSTANDING AND DENIED HAVING FURTHER QUESTIONS. ELECTROLYTE PROTOCOL FOLLOWED. PER JOHAN CROSS, SHE STATED TO GIVE ONETIME DOSE OF K+ IN AM C THE 2 DOSES PREVIOUSLY GIVEN IN AM AND THEN REPLACE BASED OFF OF [address] ERAZO OF CRITICAL LAB- SEE INTERVENTION. PT HAD LOOSE STOOLS X2 TODAY. PT HAD THORENCETISIS TODAY. PT COMFORTABLE IN BED. PT DENIES HAVING FURTHER CONCERNS. VITAL SIGNS STABLE. BLOOD SUGARS STABLE.
--- NOTE | 2020-01-22 00:41 | NUR ---
REPORT GIVEN TO FROILAN COVINGTON AT MIDNIGHT.
[2020-01-22 04:47] VITALS: BP 130/61
--- NOTE | 2020-01-22 04:59 | NUR ---
ASSUMED PT CARE AT 2355. NO SIGN OF DISTRESS NOTED IN PT. PT IS ALERT AND OREINTED. DENIES ANY PAIN. LOOSE STOOLS NOTED. PT IS STABLE. HEART RATE IS STILL AFIB BUT CONTROLLED. PACE MAKER PLACEMENT IN A FEW DAYS. PT VERBALIZES UNDERSTANDING. DENIES ANY FURTHER NEED AT THIS TIME.
[2020-01-22 06:55] LABS: CALCIUM 7.8 mg/dL (8.5-10.1); CREATININE 0.6 mg/dL (0.6-1.0); POTASSIUM 3.6 mmol/L (3.5-5.1)
[2020-01-22 07:37] VITALS: BP 130/56
--- NOTE | 2020-01-22 08:14 | NUR ---
ASSUMED CARE OF PT AT SHIFT CHANGE, DENIES ANY PAIN AT THIS TIME (NO PAIN MED ON EMAR ORDERED), AMB CLOSE SBA, BLE EDEMA, A&0X4, USES CALL LIGHT FOR NEEDS. HAS LOOSE STOOLS; NOT MALODOROUS. SEE SEPARATE INTERVENTIONS FOR ASSESSMENTS, CARDIAC MONITORED. ENCOURAGED PT TO USE CALL LIGHT FOR ANY NEEDS. ISO FOR LOOSE STOOLS, PRECAUTION WHILE AWAITING RESULTS OF STOOL SAMPLE.
[2020-01-22 12:12] LABS: BODY FLUID ALBUMIN 0.7 g/dL (Not Estab.); BODY FLUID AMYLASE 7 U/L (()); BODY FLUID GLUCOSE 197 mg/dL (()); BODY FLUID LDH 105 IU/L (()); BODY FLUID PROTEIN 1.5 g/dL (())
--- NOTE | 2020-01-22 14:14 | NUR ---
spoke at length with patient regarding post acute care. She wants to try to return home with care. Patient has 5N eval. Patient wants to discuss further after pacemaker tomorrow.
[2020-01-22 17:10] VITALS: BP 129/61
[2020-01-22 20:10] VITALS: BP 123/69
[2020-01-23] VITALS (10 sets, daily range): BP systolic 104–160; BP diastolic 52–80
[2020-01-23 06:39] LABS: ABSOLUTE NEUTROPHILS 6.9 thou/uL (1.4-8.2); BASOPHILS 0.2 % (0.0-2.0); EOSINOPHILS 1.6 % (0.0-3.0); HEMATOCRIT 28.4 % (37.0-47.0); HEMOGLOBIN 9.2 gm/dL (12.0-15.0); LYMPHOCYTES 10.2 % (24.0-44.0); MCH 28.6 pg (26.0-34.0); MCHC 32.3 g/dL (28.0-37.0); MCV 88.7 fL (80.0-100.0); MONOCYTES 10.4 % (1.0-8.0); PLATELET COUNT 129 thou/uL (150-400); POLYS 77.6 % (36.0-66.0); RDW 17.2 % (10.5-14.5); WBC 8.9 thou/uL (4.0-11.0)
--- NOTE | 2020-01-23 06:42 | NUR ---
PT NPO AFTER MNOC FOR PACEMAKER TODAY, PT RESTING QUIETLY OFF AND ON THRU THE NOC, NO C/O PAIN, VOIDING PER BSC, EDUCATION AND REASSURANCE GIVEN THRU THE NOC FOR PTS ANXIETY OVER PROCEDURE, VSS, REMAINS AFIB IN LOW 100'S, LABS DRAWN THRU PICC LINE, WILL CON'T TO MONITOR PER PPOC.
[2020-01-23 06:51] LABS: CALCIUM 8.1 mg/dL (8.5-10.1); CREATININE 0.8 mg/dL (0.6-1.0); INR 1.1; POTASSIUM 3.4 mmol/L (3.5-5.1); PROTIME 11.1 Seconds (9.3-11.4)
[2020-01-23 11:06] LABS: SOURCE THORACENTESIS
--- NOTE | 2020-01-23 13:08 | PATH ---
[facility] [address] [place] [address] PATHOLOGY RPT PROCEDURE Name: JOSHUA MCCLOUD Room #: 211-P ADM IN M.R.#: [id number] Admission: 01/09/20 Date of : 41 Discharge: Report #: [id number] Path Case #: [id number] Note LCA Accession Number: [id number] TESTS RESULT FLAG UNITS REF RANGE LAB Clinician Provided Cytology Information No. of containers..01 Other (Miscellaneous) Source: 01 PLEURAL FLUID DIAGNOSIS: 02 PLEURAL FLUID NEGATIVE FOR MALIGNANT CELLS. MESOTHELIAL CELLS ARE PRESENT. SCANT CELLULARITY. THIS INTERPRETATION INCLUDES EVALUATION OF A CELL BLOCK. Pathologist ICD10: 02 R00.1 Signed out by: 02 Yary Montgomery MD, Pathologist NPI- [id number] Performed by: 01 Iris Cummins Glaciologist ([facility]) Gross description: 01 5ML, CLEAR YELLOW, 1 TP 1 CB /LCS 01/21/2020 1543 Local FLAG LEGEND: L-Low Normal,H-High Normal,LL-Alert Low,HH-Alert High <-Panic Low,>-Panic High,A-Abnormal,AA-Critical Abnormal Performed at: [address] [place] [address] Marc Menchaca MD, [address] [address] Yary Montgomery MD, Specimen Comment: A courtesy copy of this report has been sent to [phone], [phone] Specimen Comment: [phone] Specimen Comment: Report sent to / DR JUDD Performed at: [address], [place], [place] [id number] MD Marc Menchaca MD Phone: [phone]
--- NOTE | 2020-01-23 16:54 | NUR ---
Patient to work with therapy in am. Possible home with care vs need for rehab. 5N following. patient may be a candidate for acute care pending bed avail on 5N.
--- NOTE | 2020-01-23 18:25 | NUR ---
ASSUMMED PT CARE AT APPROXIMATELY 0700. PT A&O X4. ASSESSMENT CHARTED. FALL PRECAUTIONS IN PLACE. PT DENIES HAVING CHEST PAIN. PT DENIES HAVING SOB. PT AND PT'S FAMILY EDUCATED ABOUT POC. PT AND PT'S FAMILY STATED UNDERSTANDING AND DENIED HAVING FURTHER QUESTIONS. PT HAD PACEMAKER IMPLANT TODAY. POST VITAL SIGNS COMPLETE. VITAL SIGNS STABLE. BLOOD SUGARS STABLE. L SUBCLAVIAN C/D/I C PRESSURE DRESSING COVERING. K+ REPLACEMENT PROVIDED. IMMOBILIZER IN PLACE. PT DENIES HAVING ACUTE PAIN. PT SITTING AT 45 OR GREATER DEGREES. BED REST IN PLACE. PT COMFORTABLE IN BED. PT DENIES HAVING FURTHER CONCERNS.
[2020-01-24 00:14] VITALS: BP 112/69
[2020-01-24 04:45] LABS: CALCIUM 8.1 mg/dL (8.5-10.1); CREATININE 0.7 mg/dL (0.6-1.0); POTASSIUM 3.8 mmol/L (3.5-5.1)
[2020-01-24 04:48] VITALS: BP 117/68
--- NOTE | 2020-01-24 05:37 | NUR ---
resting on and off thru the noc, incision with pressure dressing cdi, no c/o pain, vss, immobilizer on, pt repositioned as needed, will con't to monitor per ppoc.
--- NOTE | 2020-01-24 06:07 | PATH ---
[facility] [address] [place] [address] PATHOLOGY RPT PROCEDURE Name: JOSHUA MCCLOUD Room #: 211-P ADM IN M.R.#: [id number] Admission: 01/09/20 Date of : 41 Discharge: Report #: [id number] Path Case #: [id number] Note LCA Accession Number: [id number] TESTS RESULT FLAG UNITS REF RANGE LAB Clinician Provided Cytology Information No. of containers..01 Other (Miscellaneous) Source: 01 PLEURAL FLUID DIAGNOSIS: 02 PLEURAL FLUID NEGATIVE FOR MALIGNANT EPITHELIAL CELLS. REACTIVE MESOTHELIAL CELLS ARE PRESENT. THIS INTERPRETATION INCLUDES EVALUATION OF A CELL BLOCK. Comment: Multiple properly controlled immunohistochemical stains are performed on the formalin fixed cell block material. The groups of cells are strongly reactive to calretinin as well as desmin; non-reactive to BerEP4 and CD68 is reactive within a few macrophages. Findings support the diagnosis rendered. Pathologist ICD10: 02 R00.1 Signed out by: 02 Yary Montgomery MD, Pathologist NPI- [id number] Performed by: Rcia Cummins, Manager Payer ([facility]) Gross description: 01 15ML, CLEAR YELLOW, 1 TP 1 CB /LCS 01/21/20201910 Local FLAG LEGEND: L-Low Normal,H-High Normal,LL-Alert Low,HH-Alert High <-Panic Low,>-Panic High,A-Abnormal,AA-Critical Abnormal Performed at: [address] [place] [address] Marc Menchaca MD, [address] [address] Yary Montgomery MD, Performed at: [address], [place], [place] [id number] MD Marc Menchaca MD Phone: [phone]
[2020-01-24 07:30] VITALS: BP 95/58
[2020-01-24 11:30] VITALS: BP 101/60
--- NOTE | 2020-01-24 12:24 | NUR ---
VASCULAR ACCESS TEAM SPOKE TO CHU PRADO ABOUT DC PICC PRIOR TO DISCHARGE TO REHAB,
--- NOTE | 2020-01-24 13:30 | NUR ---
Pt has been accepted to 5N acute rehab and they have a bed for her today. Care team and the attending updated. Pt updated at bedside and agreeable. The rehab orthodontist and liason, both have visited with her today. The pt is agreeable. All parties anticipating dc to 5n later this afternoon. The pt will advise her family once her room number on 5N is confirmed.
[2020-01-24] MEDS ORDERED: ATENOLOL 50MG T50 M1 PO (13:31)
[2020-01-24] MEDS ORDERED: PACERONE 200 M200 M1 PO (13:31)
--- NOTE | 2020-01-24 15:42 | NUR ---
REMOVED PT'S NEW IV'S THAT WERE PLACED ON LUE FOR HER PROCEDURE YESTERDAY. NOT GIVEN IN REPORT, NO ISSUES OTHER THAN PRESSURE NEEDING TO BE HELD LONG. WILL GIVE REPORT ONCE NURSE ASSIGNED FOR PT. ASSIGNED TRANSPORT AT 16:00. PT HAS BELONGINGS IN BAG AND IV ABX WILL BE TAKEN UPSTAIRS. PT ANXIOUS BUT EXCITED.
--- NOTE | 2020-01-25 11:06 | P ---
[facility] [place] [address] PROCEDURE REPORT Name: JOSHUA MCCLOUD Room #: 211-P [facility] IN M.R.#: [id number] Admission: 01/09/20 Attend Phys: Alphonse Cross MD Discharge: 01/24/20 Date of : 41 Report #: [id number] THIS REPORT FOR: cc: Georgette West MD, Paula V. MD Couchonnal, Luis F. MD ~ CC: Alphonse West DUAL-CHAMBER PACEMAKER IMPLANTATION PREOPERATIVE DIAGNOSES: 1. Sick sinus syndrome. 2. Tachycardia-bradycardia syndrome. 3. Atrial fibrillation. POSTOPERATIVE DIAGNOSES: 1. Sick sinus syndrome. 2. Tachycardia-bradycardia syndrome. 3. Atrial fibrillation. HISTORY OF PRESENT ILLNESS: The patient is a 74-year-old with new-onset atrial fibrillation with rapid ventricular response. She has very difficult to control rates. She underwent CARITO-guided cardioversion and then had symptomatic junctional bradycardia. She eventually went back into AFib with RVR. She has had an echocardiogram showing normal LV size and function with severe left and right atrial enlargement and tapztrkh-fq-saykei tricuspid regurgitation. She is here for dual-chamber pacemaker implantation. ANESTHESIA: The patient underwent MAC anesthesia with no anesthesia related complications. DESCRIPTION OF PROCEDURE: The patient underwent informed consent. We discussed the details of the procedure including the risks, which included but not limited to bleeding, infection, vascular damage, cardiac perforation, pneumothorax. She understood these risks and is willing to proceed. The patient was brought to EP laboratory in fasting and sedated state, prepped and draped in a sterile fashion. She underwent a venogram showing patency of the left axillary vein and she received IV vancomycin for antibiotic prophylaxis. Next, I injected lidocaine at the incision site. Incision was made. A pocket was created over the prepectoral fascia. Then, access was obtained twice to left axillary vein using the extrathoracic approach with sheaths positioned using the modified Seldinger technique. Next, under fluoroscopy, a lead was positioned into the right apical septum and the right atrial appendage. The ventricular lead had adequate sensing and pacing [address] [address] PROCEDURE REPORT Name: JOSHUA MCCLOUD Room #: 211-P [facility] IN M.R.#: [id number] Admission: 01/09/20 Attend Phys: Alphonse Cross MD Discharge: 01/24/20 Date of : 41 Report #: [id number] thresholds. The atrial lead demonstrated small AFib waves and thresholds could not be tested. The leads were sutured to the prepectoral fascia. She did have some high PA pressures, so I did suture the tissue overlying the leads to provide some hemostasis. The device was connected to leads. Tug tests were performed and the device was functioning normally. The pocket was irrigated with vancomycin and the pocket was closed in 2 layers using 2-0 for the deep layer, 3-0 for the mid layer and surgical glue was placed through outer skin layer. The patient awoke neurologically and hemodynamically intact. No complications and no significant bleeding. Implanted pacemaker was a [employer], model #2272, serial #[id number]. The atrial and ventricular leads were [employer] leads. The ventricular lead demonstrated R-wave of 6 millivolts, pacing impedance of 630 ohms, pacing threshold 0.75 volts at 0.4 milliseconds. The atrial lead demonstrated impedance of 430 ohms, P waves of 0.2 millivolts and no thresholds could be tested. The device was programmed to the VVIR 60-130 mode. CONCLUSIONS: 1. Successful dual-chamber pacemaker implantation. 2. Satisfactory atrial and ventricular lead characteristics. <ELECTRONICALLY SIGNED> By: Aden Bejarano MD 01/25/20 1106 1411 2246 Aden Bejarano MD /nt
--- NOTE | 2020-01-25 15:28 | EKG ---
[facility] [place] [address] ELECTROCARDIOGRAM REPORT Name: JOSHUA MCCLOUD Room #: 211-P [facility] IN M.R.#: [id number] Admission: 01/09/20 Attend Phys: Alphonse Cross MD Discharge: 01/24/20 Date of : 41 Report #: [id number] THIS REPORT FOR: cc: Georgette West MD, Paula V. MD Couchonnal,Aden Huber MD ~ THIS REPORT FOR: //name// [facility] ED Test Date: 2020-01-09 Test Time: 12:37:26 Pat Name: JOSHUA MCCLOUD Department: Room: 170 Gender: F Public Health Representative: CORY : 1945 Requested By: Frandy Keita Order Number: [id number] MD: Aden Bejarano Measurements Intervals [place] Rate: 103 P: [place]: QRS: 71 QRSD: 132 T: 29 QT: 423 QTc: 554 Interpretive Statements Atrial fibrillation Ventricular premature complex Right bundle branch block No previous ECG available for comparison Electronically Signed On 01-09-2020 16:20:11 DRAPERY ESTIMATOR by Aden Bejarano [email or web address] <ELECTRONICALLY SIGNED> By: Aden Bejarano MD 01/09/20 1620 1237 1237 Aden Bejarano MD /EPI
--- NOTE | 2020-01-25 15:29 | EKG ---
[facility] [place] [address] ELECTROCARDIOGRAM REPORT Name: JOSHUA MCCLOUD Room #: 211-P [facility] IN M.R.#: [id number] Admission: 01/09/20 Attend Phys: Alphonse Cross MD Discharge: 01/24/20 Date of : 41 Report #: [id number] THIS REPORT FOR: cc: Georgette West MD, Paula V. MD Couchonnal,Aden Huber MD ~ THIS REPORT FOR: //name// [facility] Test Date: 2020-01-11 Test Time: 07:56:25 Pat Name: JOSHUA MCCLOUD Department: Room: 237 P Gender: F Enamel Shader: Liss GRACIA : 1945 Requested By: Kris Mauro Order Number: [id number] MD: Aden Bejarano Measurements Intervals [place] Rate: 121 P: [place]: QRS: 47 QRSD: 117 T: -82 QT: 323 QTc: 459 Interpretive Statements Atrial fibrillation Right bundle branch block Low voltage, extremity and precordial leads Compared to ECG 01/10/2020 07:35:25 Right bundle-branch block now present Ventricular premature complex(es) no longer present Electronically Signed On 01-11-2020 8:00:43 ROLL INSPECTOR by Aden Bejarano [email or web address] <ELECTRONICALLY SIGNED> By: Aden Bejarano MD 01/11/20 0800 075 075 Aden Bejarano MD /EPI
--- NOTE | 2020-01-25 15:29 | EKG ---
[facility] [place] [address] ELECTROCARDIOGRAM REPORT Name: JOSHUA MCCLOUD Room #: 211-P [facility] IN M.R.#: [id number] Admission: 01/09/20 Attend Phys: Alphonse Cross MD Discharge: 01/24/20 Date of : 41 Report #: [id number] THIS REPORT FOR: cc: Georgette West MD, Paula V. MD Couchonnal,Aden Huber MD ~ THIS REPORT FOR: //name// [facility] Test Date: 2020-01-10 Test Time: 07:35:25 Pat Name: JOSHUA MCCLOUD Department: Room: 237 P Gender: F Office Chair Assembler: ABIMAEL : 1945 Requested By: Kris Mauro Order Number: [id number] MD: Aden Bejarano Measurements Intervals [place] Rate: 110 P: [place]: QRS: 67 QRSD: 89 T: 9 QT: 354 QTc: 480 Interpretive Statements Atrial fibrillation Ventricular premature complex Low voltage, extremity and precordial leads Consider RVH w/ secondary repol abnormality Compared to ECG 01/09/2020 12:37:26 Low QRS voltage now present Right bundle-branch block no longer present Electronically Signed On 01-10-2020 8:19:23 PROC TECH by Aden Bejarano [email or web address] <ELECTRONICALLY SIGNED> By: Aden Bejarano MD 01/10/20818 4 4 Aden Bejarano MD /EPI
--- NOTE | 2020-01-25 15:30 | EKG ---
[facility] [place] [facility] [address] ELECTROCARDIOGRAM REPORT Name: JOSHUA MCCLOUD Room #: 211-P [facility] IN M.R.#: [id number] Admission: 01/09/20 Attend Phys: Alphonse Cross MD Discharge: 01/24/20 Date of : 41 Report #: [id number] THIS REPORT FOR: cc: Georgette West MD, Paula V. MD Lundgren,Kris Harper MD [facility] ~ THIS REPORT FOR: //name// [facility] Test Date: 2020-01-14 Test Time: 09:22:33 Pat Name: JOSHUA MCCLOUD Department: Room: 204 P Gender: F Floor Broker: ABIMAEL : 1945 Requested By: Kris Mauro Order Number: [id number] MD: Kris Mauro Measurements Intervals [place] Rate: 84 P: 3 ID: 234 QRS: 26 QRSD: 121 T: 7 QT: 439 QTc: 520 Interpretive Statements Sinus rhythm Prolonged ID interval Right bundle branch block Anteroseptal infarct, age indeterminate Compared to ECG 01/11/2020 07:56:25 Atrial fibrillation no longer present Electronically Signed On 01-14-2020 9:47:32 BUSINESS SERVICES MANAGER by Kris Mauro [email or web address] <ELECTRONICALLY SIGNED> By: Kris Mauro MD, FAC 01/14/2047 1 1 Kris Mauro MD, FAC /EPI
--- NOTE | 2020-01-25 15:31 | EKG ---
[facility] [place] [address] ELECTROCARDIOGRAM REPORT Name: JOSHUA MCCLOUD Room #: 211-P [facility] IN M.R.#: [id number] Admission: 01/09/20 Attend Phys: Alphonse Cross MD Discharge: 01/24/20 Date of : 41 Report #: [id number] THIS REPORT FOR: cc: Georgette West MD, Paula V. MD Couchonnal,Aden Huber MD ~ THIS REPORT FOR: //name// [facility] Test Date: 2020-01-15 Test Time: 07:12:15 Pat Name: JOSHUA MCCLOUD Department: Room: 204 P Gender: F Venture Capitalist: belle : 1945 Requested By: Kris Mauro Order Number: [id number] MD: Aden Bejarano Measurements Intervals [place] Rate: 91 P: [place]: QRS: 57 QRSD: 117 T: -9 QT: 397 QTc: 489 Interpretive Statements Atrial fibrillation Incomplete right bundle branch block Low voltage, extremity and precordial leads Compared to ECG 01/14/2020 09:22:33 Incomplete right bundle-branch block now present Low QRS voltage now present Sinus rhythm no longer present First degree AV block no longer present Right bundle-branch block no longer present Myocardial infarct finding no longer present Electronically Signed On 01-15-2020 8:10:39 EXTRACT PULLER by Aden Bejarano [email or web address] <ELECTRONICALLY SIGNED> By: Aden Bejarano MD 01/15/20809 1 1 Aden Bejarano MD /EPI
--- NOTE | 2020-01-25 15:32 | EKG ---
[facility] [place] [address] ELECTROCARDIOGRAM REPORT Name: JOSHUA MCCLOUD Room #: 211-P [facility] IN M.R.#: [id number] Admission: 01/09/20 Attend Phys: Alphonse Cross MD Discharge: 01/24/20 Date of : 41 Report #: [id number] THIS REPORT FOR: cc: Georgette West MD, Paula V. MD Lundgren,Kris Harper MD [facility] ~ THIS REPORT FOR: //name// [facility] Test Date: 2020-01-16 Test Time: 08:19:14 Pat Name: JOSHUA MCCLOUD Department: Room: 241 Gender: F Registered Nurse Float Pool: Liss GRACIA : 1945 Requested By: Kris Mauro Order Number: [id number] MD: Kris Mauro Measurements Intervals [place] Rate: 35 P: [place]: QRS: 85 QRSD: 142 T: 39 QT: 493 QTc: 377 Interpretive Statements Junctional bradycardia Right bundle branch block Compared to ECG 01/15/2020 07:12:15 Junctional rhythm now present Electronically Signed On 01-18-2020 9:03:07 MICROSOFT OFFICE INSTRUCTOR by Kris Mauro [email or web address] <ELECTRONICALLY SIGNED> By: Kris Mauro MD, [facility] 01/18/20 0903 8 8 Kris Mauro MD, [facility] /EPI
--- NOTE | 2020-01-25 15:32 | EKG ---
[facility] Leida [place] [address] ELECTROCARDIOGRAM REPORT Name: JOSHUA MCCLOUD Room #: 211-P [facility] IN M.R.#: [id number] Admission: 01/09/20 Attend Phys: Alphonse Cross MD Discharge: 01/24/20 Date of : 41 Report #: [id number] THIS REPORT FOR: cc: Georgette West MD,Georgette Mauro,Kris Harper MD [facility] ~ THIS REPORT FOR: //name// [facility] Test Date: 2020-01-16 Test Time: 15:17:37 Pat Name: JOSHUA MCCLOUD Department: Room: 241 P Gender: F Pediatrics Teacher: Nisha HODGES : 1945 Requested By: Aden Bejarano Order Number: [id number] MD: Kris Mauro Measurements Intervals [place] Rate: 69 P: -4 ND: 228 QRS: 60 QRSD: 138 T: 8 QT: 415 QTc: 445 Interpretive Statements Sinus rhythm Prolonged [place] interval Right bundle branch block Compared to ECG 01/15/2020 07:12:15 Atrial fibrillation no longer present Electronically Signed On 01-18-2020 9:15:48 PENCIL MAKER by Kris Mauro [email or web address] <ELECTRONICALLY SIGNED> By: Kris Mauro MD, FAC 01/18/20 0915 1517 1517 Kris Mauro MD, FAC /EPI
--- NOTE | 2020-01-25 15:32 | EKG ---
[facility] [place] [address] ELECTROCARDIOGRAM REPORT Name: JOSHUA MCCLOUD Room #: 211-P [facility] IN M.R.#: [id number] Admission: 01/09/20 Attend Phys: Alphonse Cross MD Discharge: 01/24/20 Date of : 41 Report #: [id number] THIS REPORT FOR: cc: Georgette West MD, Paula V. MD Lundgren,Kris Hraper MD [facility] ~ THIS REPORT FOR: //name// [facility] Test Date: 2020-01-17 Test Time: 07:11:56 Pat Name: JOSHUA MCCLOUD Department: Room: 241 P Gender: F Golf Cart Maker: ABIMAEL : 1945 Requested By: Kris Mauro Order Number: [id number] MD: Kris Mauro Measurements Intervals [place] Rate: 122 P: [place]: QRS: 86 QRSD: 97 T: QT: 406 QTc: 579 Interpretive Statements Atrial fibrillation Right bundle-branch block Compared to ECG 01/15/2020 07:12:15 Atrial fibrillation is now present Electronically Signed On 01-18-2020 9:26:50 SHINGLE CARRIER by Kris Mauro [email or web address] <ELECTRONICALLY SIGNED> By: Kris Mauro MD, [facility] 01/18/20 0926 0711 Kris Mauro MD, [facility] /EPI
== END 2020-01-24 16:27 | DRG 853 ==
LOC: ER 11:24 → 2N 13:56 → ICU 13:56 → EROBS 13:56 → 2N 13:56 → ICU 17:32 → 2N 01-11 16:50 → ICU 01-16 13:58 → 2N 01-18 15:01
PROVIDERS: Emergency Medicine; Internal Medicine; Internal Medicine Cardiovascular Disease; Internal Medicine Pulmonary Disease; Pediatrics; ADMIT Hospitalist
PROC: 5A1935Z Respiratory Ventilation, Less than 24 Consecutive Hours (ICD-10-PCS; principal; 2020-01-09)
PROC: 0BH17EZ Insertion of Endotracheal Airway into Trachea, Via Natural or Artificial Opening (ICD-10-PCS; principal; 2020-01-09)
PROC: B51N1ZZ Fluoroscopy of Left Upper Extremity Veins using Low Osmolar Contrast (ICD-10-PCS; principal; 2020-01-09)
PROC: 02H63JZ Insertion of Pacemaker Lead into Right Atrium, Percutaneous Approach (ICD-10-PCS; principal; 2020-01-09)
PROC: 05HY33Z Insertion of Infusion Device into Upper Vein, Percutaneous Approach (ICD-10-PCS; principal; 2020-01-09)
PROC: 0JH606Z Insertion of Pacemaker, Dual Chamber into Chest Subcutaneous Tissue and Fascia, Open Approach (ICD-10-PCS; principal; 2020-01-09)
PROC: 02HK3JZ Insertion of Pacemaker Lead into Right Ventricle, Percutaneous Approach (ICD-10-PCS; principal; 2020-01-09)
PROC: B24BZZ4 Ultrasonography of Heart with Aorta, Transesophageal (ICD-10-PCS; 2020-01-14)
PROC: 5A2204Z Restoration of Cardiac Rhythm, Single (ICD-10-PCS; 2020-01-16)
PROC: 5A09357 Assistance with Respiratory Ventilation, Less than 24 Consecutive Hours, Continuous Positive Airway Pressure (ICD-10-PCS; 2020-01-16)
PROC: 5A09357 Assistance with Respiratory Ventilation, Less than 24 Consecutive Hours, Continuous Positive Airway Pressure (ICD-10-PCS; 2020-01-17)
PROC: 0W993ZZ Drainage of Right Pleural Cavity, Percutaneous Approach (ICD-10-PCS; 2020-01-17)
PROC: 0W993ZZ Drainage of Right Pleural Cavity, Percutaneous Approach (ICD-10-PCS; 2020-01-21)
DX: A41.9 Sepsis, unspecified organism (principal); J96.01 Acute respiratory failure with hypoxia; I50.33 Acute on chronic diastolic (congestive) heart failure; G92 Toxic encephalopathy; J96.02 Acute respiratory failure with hypercapnia; J18.9 Pneumonia, unspecified organism; N17.9 Acute kidney failure, unspecified; I48.19 Other persistent atrial fibrillation; E44.0 Moderate protein-calorie malnutrition; N39.0 Urinary tract infection, site not specified; J91.8 Pleural effusion in other conditions classified elsewhere; Z60.2 Problems related to living alone; E78.5 Hyperlipidemia, unspecified; E11.9 Type 2 diabetes mellitus without complications; I49.5 Sick sinus syndrome; I95.9 Hypotension, unspecified; E87.5 Hyperkalemia; E87.6 Hypokalemia; I11.0 Hypertensive heart disease with heart failure; I07.1 Rheumatic tricuspid insufficiency; B96.1 Klebsiella pneumoniae [K. pneumoniae] as the cause of diseases classified elsewhere; Z79.01 Long term (current) use of anticoagulants; Z68.28 Body mass index [BMI] 28.0-28.9, adult; Z79.899 Other long term (current) drug therapy
CPT/HCPCS: 10078; 10081; 10204; 10797; 27000; 62110; 62900; 70005

== ENCOUNTER 2020-01-24 14:39 | Inpatient (IN) | payer OTHER, MEDICARE ==
[~2020-01-24] VITALS: Ht 154.9 cm; Wt 62.9 kg
--- NOTE | ~2020-01-24 | H ---
[facility] [place] [address] HISTORY AND PHYSICAL Name: JOSHUA MCCLOUD Room #: 509-P ADM IN M.R.#: [id number] Admission: 01/24/20 Attend Phys: Russ Cruz MD Discharge: Date of : 41 Report #: [id number] THIS REPORT FOR: cc: Georgette West MD,Russ Prieto MD, MD ~ CC: Russ West DATE OF SERVICE: 01/24/2020 HISTORY AND PHYSICAL AND POST-ADMISSION PHYSICIAN EVALUATION HISTORY OF PRESENT ILLNESS: The patient is a 74-year-old white female who was originally admitted on 01/09/2020 with atrial fibrillation, developed problems with increased weakness, mental status changes, severe bradycardia, required transient pacing. She was intubated, pressors were added. She was placed on IV amiodarone. She underwent attempted cardioversion with difficulty in converting. She was diagnosed with sick sinus syndrome. She was gradually extubated, noted to be significantly weak with generalized debilitation and also to have problems with mental status changes with toxic metabolic encephalopathy. She underwent pacemaker placement. She also had a pleural effusion and was tapped with greater than 700 mL obtained. She was treated for pneumonia with Zosyn as well as Klebsiella UTI and was treated for sepsis. She had acute renal insufficiency with possible acute tubular necrosis, acute on chronic congestive heart failure. Her mental status is gradually improving. She had a permanent pacemaker done on 01/21/2020 and had the thoracentesis on 01/21/2020. She has now been admitted for acute in-hospital inpatient rehabilitation. PAST MEDICAL HISTORY: Includes hypertension, otherwise see above. HABITS: Nonsmoker. ALLERGIES: No known drug allergies. MEDICATIONS: Please see the full medication listing. SOCIAL HISTORY: Lives in [place] in a house alone. Her son stays with her 5 days a week and works at [employer]. He otherwise lives in . Previous to this, had been ambulatory without gait aids, driving in the community. There are 2 steps in. REVIEW OF SYSTEMS: No complaints of chest pain, shortness of breath, abdominal discomfort. She has some discomfort expected of her left pacemaker site. No problems with vision or swallowing difficulties were verbalized. No bowel or bladder changes. No focal lower extremity pain complaints. She does not like [facility] [place] [address] HISTORY AND PHYSICAL Name: JOSHUA MCCLOUD Room #: 509-P [facility] IN ..#: [id number] Admission: 01/24/20 Attend Phys: Russ Cruz MD Discharge: Date of : 41 Report #: [id number] the swelling in her legs and does have complaints about the lower extremity edema. PHYSICAL EXAMINATION: GENERAL: She is a pleasant 74-year-old white female in no obvious distress. VITAL SIGNS: Last recorded temperature 97.7, pulse 60, respirations 14, and blood pressure 122/62. The patient is alert. She will follow basic 1 step commands. There is a definite latency to some of her responses. Some problems with concentration. HEAD, EYES, EARS, NOSE, AND THROAT: Facies appeared symmetric. EOMs appeared full. CHEST: Sounded clear to auscultation. Her pacemaker site appears to be intact. Incision appears to be healing. CARDIOVASCULAR: Appears regular. ABDOMEN: Bowel sounds positive, soft, nontender. GENITOURINARY AND RECTAL: Deferred. NEUROLOGIC: I just had gently move that left upper extremity with the pacemaker. No focal weakness of the elbow, wrist or hand. Right upper extremity functional range of motion, strength is probably a grade 4-/5 lower extremities bilaterally are probably a grade 4- to 3+/5. She does have 1-2+ bilateral lower extremity distal tibial edema and she does have some discomfort with that. No focal calf swelling. Heels are a little boggy, but no obvious breakdown. ASSESSMENT: A 74-year-old white female with the following problem list: 1. Toxic metabolic encephalopathy. 2. Atrial fibrillation, status post failed cardioversion x 3. 3. Pleural effusion, status post thoracentesis on 01/21/2020. 4. Sick sinus syndrome, status post permanent pacemaker. 5. Acute respiratory failure, which has resolved. 6. Bilateral lower extremity edema. 7. Sepsis, resolved. 8. Previous pneumonia. 9. Previous Klebsiella urinary tract infection. 10. Prior acute kidney insufficiency. 11. Acute on chronic diastolic heart failure with severe tricuspid regurgitation. Continuing with diuresis while monitoring renal status. PLAN: The patient is admitted for acute in-hospital inpatient rehabilitation. From a postadmission physician evaluation perspective, there are no relevant changes since the preadmission screening. Please see the above review of prior and current medical and functional conditions and comorbidities. Please see the patient's previous and current functional status. As far as risk of complications, the patient has multiple medical comorbidities as noted above. Initial plan of care involves the interdisciplinary acute inpatient rehabilitation program. Measurable functional goals would be for the patient to [address] [address] HISTORY AND PHYSICAL Name: JOSHUA MCCLOUD Room #: 509-P ADM IN M.R.#: [id number] Admission: 01/24/20 Attend Phys: Russ Cruz MD Discharge: Date of : 41 Report #: [id number] become modified independent with transfers, mobility, ADLs and cognition, so she can return back to the home setting. Prognosis is reasonably good with estimated length of stay probably at least 6-10 days. Potential barriers would include the multiple medical comorbidities and decreased functional status. The patient meets diagnostic criteria for an acute in-hospital inpatient rehabilitation stay. She meets the medical necessity criteria and we will continue to have the multiple consultants continue to follow. She does have the tolerance for therapies and has appropriate discharge goals back to the home setting. By: 0904 0934 Russ Cruz MD /[facility]
--- NOTE | ~2020-01-24 | PLAN ---
[facility] [place] [address] REHAB UNIT PLAN OF CARE Name: JOSHUA MCCLOUD Room #: 509-P ADM IN M.R.#: [id number] Admission: 01/24/20 Attend Phys: Russ Cruz MD Discharge: Date of : 41 Report #: [id number] THIS REPORT FOR: //name// CC: Russ OroDanie DATE OF SERVICE: 01/26/2020 PROGRESS NOTE/OVERALL PLAN OF CARE SUBJECTIVE: The patient was seen yesterday morning in followup. The patient is in no distress. Temperature 98.1, pulse 60, respirations 16, blood pressure 114/62. She has been working in therapies with transfers, sit to stand with contact guard assistance level. She is ambulating up to 150 feet min assist without a device and also utilizing a front-wheeled walker. In occupational therapy, lower body dressing with socks and hose, she has been dependent. She does have some lower extremity edema, which is present and I know Dr. Mauro is working on gradually decreasing that as previously discussed with him. This has been probably at least a 1-2+. In speech therapy, she has been seen with mild cognitive deficits and lelg-rl-mrogsgct memory deficits. ASSESSMENT: 1. Toxic metabolic encephalopathy. 2. Atrial fibrillation, status post failed cardioversion x 3. 3. Pleural effusion, status post thoracentesis, 01/21/2020. 4. Sick sinus syndrome, status post permanent pacemaker. 5. Acute respiratory failure, resolved. 6. Bilateral lower extremity edema, which is improving. 7. Sepsis, resolved. 8. Previous pneumonia. 9. Previous Klebsiella urinary tract infection. 10. Prior acute kidney insufficiency. 11. Cgyjl-ir-lxcqwxe diastolic heart failure. PLAN: The overall plan of care is based on the preadmission screen, post-admission physician evaluation, and information garnered from therapy assessments. 1. Estimated length of stay is probably 6-10 days. 2. Medical prognosis is reasonably good. 3. Anticipated interventions includes the interdisciplinary acute inpatient rehabilitation program. 4. Anticipated functional outcomes would be for the patient to become modified independent with transfers, mobility, ADLs, so that she can hopefully return back to her prior living situation as well as improvement in cognition. 5. Discharge destination would be home with family. The son is closely involved. [place] [phone] REHAB UNIT PLAN OF CARE Name: MCCLOUDKYJOSHUA J Room #: 509-P [facility] IN M.R.#: [id number] Admission: 01/24/20 Attend Phys: Russ Cruz MD Discharge: Date of : 41 Report #: [id number] 6. Expected therapy by discipline includes PT, OT and speech 1 hour per day each five days a week throughout the duration of the acute inpatient rehabilitation stay. By: 1013 1446 Russ Cruz MD /PMT
[2020-01-24 17:44] VITALS: BP 122/62
--- NOTE | 2020-01-24 18:41 | NUR ---
ASSUMED CARE OF PT AT 1630. REPORT RECEIVED FROM NURSE ON PREVIOUS UNIT PRIOR TO BEING BROUGHT TO UNIT. ADMISSION HISTORY AND ASSESSMENT COMPLETED, ADMISSION VITAL SIGNS OBTAINED, ADMISSION EDUCATION PROVIDED, MEDICAITONS FAXED TO PHARMACY, CONSULTS CALLED. PT PROVIDED DINNER ON UNIT. SON AT BEDSIDE, BOTH DENY QUESTIONS OR CONCERNS AT THIS TIME. +3 PITTING EDEMA TO BLE, IRREGULAR HR, LUNG SOUNDS CLEAR IN ALL LOBES, DENIES PAIN AT THIS TIME. TRIPLE LUMEN PICC TO RUE. PER SHANK BREAKER THEY WILL BE UNABLE TO PROVIDE IMMOBILIZER UNTIL AFTERNOON OF 01/25/20. FAXED FACESHEET AND ORDER PER REQUEST. FALL PRECAUTIONS IN PLACE, NURSING WILL CONTINUE TO MONITOR.
--- NOTE | 2020-01-24 18:52 | NUR ---
ASSUMED CARE OF PT AT 0700. PT IS A&OX4 AND VITAL SIGNS ARE STABLE. BLOOD PRESSURE IN 150S SYSTOLIC, NO CHANGES TO MEDICAITONS AT THIS TIME. DENIES PAIN AND PARTICIPATED IN SCHEDULED THERAPIES. ORDERS FOR HEAD CT THIS SHIFT, FINDINGS REPORTED TO PROVIDER. ACCU CHECKS ACHS AND MANAGED WITH PO MEDICATIONS AND INSULIN PER ORDERS. FALL PRECAUTIONS IN PLACE AND NURSING WILL CONTINUE TO MONITOR.
[2020-01-24 20:59] VITALS: BP 125/55
[2020-01-24 21:03] VITALS: BP 163/70
--- NOTE | 2020-01-25 04:05 | NUR ---
ASSUMED CARE AT APPROX 1900 EVENING 01/23. PT ALERT AND ORIENTED X4, SOMEWHAT ANXIOUS AT CHANGE OF SHIFT.PT REQUESTED TO HAVE 02 ON AT HS. 02 AT 1L PER N/C. PT UP TO BSC WITH 1 ASSIST TOLERATING WELL. PT APPEARS TO BE SLEEPING SOUNDLY WITH HOURLY ROUNDING CHECKS. BED ALARM ON AND CALL LIGHT IN REACH. WILL CONTINUE TO MNITOR.
[2020-01-25 05:43] LABS: HEMOGLOBIN 9.3 gm/dL (12.0-15.0); MCH 28.5 pg (26.0-34.0); MCHC 31.9 g/dL (28.0-37.0); MCV 89.2 fL (80.0-100.0); RBC 3.26 mil/uL (4.20-5.00); RDW 17.4 % (10.5-14.5); WBC 8.7 thou/uL (4.0-11.0)
[2020-01-25 05:52] LABS: CALCIUM 8.4 mg/dL (8.5-10.1); CREATININE 0.9 mg/dL (0.6-1.0); POTASSIUM 3.6 mmol/L (3.5-5.1)
[2020-01-25 08:27] VITALS: BP 119/63
--- NOTE | 2020-01-25 11:59 | NUR ---
SPOKE WITH DR JUDD ABOUT ANTIBIOTIC ORDERS FROM MEDICAL UNIT. STATES THAT HE WILL LOOK AT ORDES, WILL PUT IN ORDERS IF NEED TO BE CONTINUED. IF NO ORDERS PICC MAY BE D/C'D
--- NOTE | 2020-01-25 13:19 | NUR ---
Nutrition: Assessed due to RD consult for "wounds, special diet needs." Admit for rehab after complicated hospital stay. Initially admit in 12/2019 w/ a fib. Later had increased weakness, mental status changes, required intubation w/ pressors, diagnosed w/ sick sinus syndrome and just recently s/p pacemaker placement and thoracentesis on 01/20. Hx: DM II, a fib (new), acute on chronic diastolic heart failure. RD visited in dining area. Despite long admission, pt w/ great appetite, eating very well. Observed 100% lunch tray completed, plus 100% Glucerna supplement. Supplements are ordered BID, which is too often for pt. Gets full from volume, plus increased urination from diuretic (noted to have 3+ pitting edema to BLE). Given excellent meal intake, will decrease to 1x/day. Encouraged protein sources first, saving sides for last. On a diabetic heart healthy diet with elevated BGs 182-221 mg/dl today. Plans to restart on metformin per pt. Pt has NO pressure wounds, but 2 incisional wounds. Pt declined diabetic diet education, allowed low sodium education for CHF. See RD education note for details. Low nutrition risk.
--- NOTE | 2020-01-25 14:40 | NUR ---
chart review. cm visited pt in icu and now she on acute rehab. pt on o2 per nasal cannula. intro to cm, team meeting, and dcp. pt a & x 3 with some forgetfulness, pleasant and able to make her needs know. " live in house, independent prior to hospital. no dme, manages own medication. son myranda stay with her tuesday through for work, so doesn't have to drive long ways to work every day. no co of pain"/geoff. will cont following as needed for dc needs.
[2020-01-25 19:34] VITALS: BP 127/56
--- NOTE | 2020-01-25 19:43 | NUR ---
PATIENT ALERT AND ORIENTED WITH SON, YESSY, AT BEDSIDE THIS EVENING. CONSIDER REMOVING PICC LINE IF NO ANTIBIOTICS OR IV MEDS. PATIENT STARTED ON INSULIN SLIDING SCALE TODAY.
--- NOTE | 2020-01-25 22:51 | NUR ---
PT ASSESSMENT DONE AND VSS. MEDS GIVEN AND WELL TOLERATED. FALL PRECAUTIONS IN PLACE. SLEEPING WELL. HOURLY ROUNDING. CALL LIGHT IN PLACE. WILL CONTINUE TO MONITOR.
[2020-01-26 08:00] VITALS: BP 114/62
--- NOTE | 2020-01-26 18:29 | NUR ---
ASSUMED CARE OF PT AT 0700. PT IS A&OX4 AND VITAL SIGNS ARE STABLE. PT DENIES PAIN AND PARTICIPATED IN SCHEDULED THERAPIES. PT DOES HAVE SOME ANXIETY AT TIMES AND BECOMES SOB, O2 >90%. 1L O2 FOR COMFORT DURING PERIODS OF INCREASED ANXIETY. PICC LINE REMOVED PER ORDERS FROM DR JUDD. IMMOBILIZER IN PLACE. SPOKE WITH DR JUDD ABOUT PT CONCERN THAT SHE TAKES METFORMIN 100MG BID AT HOME AND NO INSULIN, DR STATES THAT HE WILL ADJUST ORDERS. ACCU CHECKS ACHS AND MANAGED WITH PO MEDICATIONS AND INSULIN PER ORDERS. SURGICAL SITE FOR PACEMAKER WELL APPROXIMTED WITH SURGICAL GLUCE, SITE IS WITHOUT DRAINAGE, MINIMAL EDEMA AND REDNESS TO THE SITE. CALLS APPROPRIATLEY FOR ASSISTANCE, FALL PRECAUTIONS IN PLACE, NURSING WILL CONTINUE TO MONITOR.
[2020-01-26 19:38] VITALS: BP 129/56
--- NOTE | 2020-01-26 23:25 | NUR ---
PT ASSESSMENT DONE AND VSS. MEDS GIVEN AND WELL TOLERATED. FALL PRECAUTIONS IN PLACE. SLEEPING WELL OVERNIGHT. HOURLY ROUNDING. CALL LIGHT IN REACH. WILL CONTINUE TO MONITOR.
[2020-01-27 08:00] VITALS: BP 123/59
--- NOTE | 2020-01-27 15:04 | NUR ---
ASSUMED CARE OF PT AT 0715. PT IS A&OX4. IS ON 2L OF O2/NC. DENIES PAIN. IS STABLE. IS UP WITH STANDBY ASSIST TO BATHROOM & DINNING ROOM. IS IMPULSIVE AT TIMES. FALL PRECAUTIONS & HOURLY ROUNDING MAINTAINED. LABS & VITALS REVEIWED. DAUGHTER AT BEDSIDE AT THIS TIME. WILL CONTINUE TO MONITOR.
[2020-01-27 20:20] VITALS: BP 118/54
[2020-01-28 05:12] LABS: CALCIUM 8.3 mg/dL (8.5-10.1); CREATININE 0.8 mg/dL (0.6-1.0); POTASSIUM 3.6 mmol/L (3.5-5.1)
--- NOTE | 2020-01-28 05:12 | NUR ---
ASSUMED CARE FROM DAY SHIFT PT SITTING ON SIDE OF BED ASSESSMENT COMPLETED, DENIES PAIN C/O LOWER LEG SWELLING. PT AMBULATED TO BATHROOM WITH WALKER GAIT STEADY. DENIES PAIN OR SOA WHEN UP. MELANTONIN FOR SLEEP , PT RESTED WELL THROUGHOUT HOURLY ROUNDING , WILL REPORT CHANGES OR ABNORMAL FINDINGS.
[2020-01-28 07:31] VITALS: BP 115/47
--- NOTE | 2020-01-28 07:52 | NUR ---
ASSUMED CARE OF PT AT 0645. PT IS A&OX4. IS ON 1L OF O2/NC. IS STABLE. DENIES PAIN. IS SITTING UP IN BED RESTING COMFORTABLY. IS UP WITH STANDBY ASSIST, GB, WALKER TO BATHROOM & ALL MEALS. FALL PRECAUTIONS & HOURLY ROUNDING MAINTAINED. LABS & VITALS REVIEWED. PT HAS PACEMAKER ON LEFT CHEST; TENDER TO TOUCH, JAMIA. HAS BILAT LE EDEMA. TO WEARS TEDS DURING THE DAY & ELEVATE EXTREMITIES. CALL LIGHT WITHIN REACH. WILL CONTINUE TO MONITOR.
--- NOTE | 2020-01-28 16:42 | NUR ---
THIS NURSE CONTACTED DR. TOBIN & NOTIFIED OF PT'S ORTHOSATIC BP, LIGHTHEADEDNESS & NAUSEA. DR. MENA DC ONE OF PT'S DIURECTICS. PT AWARE. PT IS STABLE, BP STABLE & IS ASYMPTOMATIC AT THIS TIME. IN BED. CALL LIGHT WITHIN REACH. AWAITING ARRIVAL OF DINNER. WILL CONTINUE TO MONITOR.
[2020-01-28 19:50] VITALS: BP 112/56
--- NOTE | 2020-01-29 02:42 | NUR ---
assumed care at approx 1900 evening 01/27. pt alert and oriented x4, somewhat anxious and frustrated, depressed. pt given much emotional support. pt denies need for anxiety med. pt took hs meds with water tolerating well. 02 at 1l per n/c per pt request at night. pt appears to be sleeping soundly with hourly rounding checks. bed alarm on and call light in reach. will continue to monitor.
[2020-01-29 07:45] VITALS: BP 100/50
--- NOTE | 2020-01-29 09:58 | NUR ---
Received awake on bed. Due medications given as prescribed, able to swallow meds w/o difficulty. On room air, using O2 at 1lpm PRN. A+Ox4, slightly anxious. With pacemaker in place. On carb controlled diet- tolerating well; no vomiting and no abdominal pain noted. On blood sugar monitoring- taken and recorded accordingly, with sliding scale insulin prescribed. Pt had 3x bowel movement last night- refused to take laxatives today. With LE edema, kept elevated. Assisted in ADLs, cooperative and compliant with therapies. No complaints of pain made. No IV noted on patient. Complained of nausea after having breakfast, PRN medication given as prescribed. With 100/50 blood pressure this am, no light headedness noted- Cardio GRAPHIC ART DESIGNER informed re: BP and Diltiazem not given to patient- parameters ordered for medication administration. To continue monitoring patient.
--- NOTE | 2020-01-29 14:12 | NUR ---
team meeting, reccomendation: dc [facility] ( pt, ot, st and nursing), check on pacemaker restriction
[2020-01-29 19:46] VITALS: BP 118/59
--- NOTE | 2020-01-30 02:20 | NUR ---
assumed care at approx 1900 evening 01/28. pt alert and oriented x4, appropriate and cooperative. pt sitting up dangling on side of bed tolerating well. pt took hs meds with water. pt up to bathroom with standby assist. pt appears to be sleeping soundly with hourly rounding checks. bed alarm on and call light in reach. will continue to monitor.
[2020-01-30 08:00] VITALS: BP 116/41
--- NOTE | 2020-01-30 10:10 | NUR ---
cm left hh list choice and senior blue book for resources for pt outside hospital. pt working with therapy and will follow up on hh choice for dc .
--- NOTE | 2020-01-30 16:20 | NUR ---
Assumed patient care at 0715. Vital signs stable. Diltiazem held this am due to Blood Pressure of 118/59. Pulse has been Tachy, was 100 this am. Patient has been compliant with Therapies today. Blood sugars have not required any Sliding Scale Insulin. Insulin Lispro discontinued late am. Pacemaker sight continues to be tender to tactile stimulation; it is free of signs/symptoms of infection. Patient reported "two loose stools after lunch." She believe's that she did not chew her salad up enough which she had ordered for lunch. Patient agreed to report any further loose stools to nursing staff and to increase water intake. Patient is up with assist of one with walker. Will continue to monitor.
[2020-01-30 19:55] VITALS: BP 105/54
--- NOTE | 2020-01-31 03:45 | NUR ---
Assessments completed. pt a&ox4. ambulates with standby assist to the bathroom with a walker. pacemaker intact and patent with no pt complaints. pt stated understanding of the pacemaker protocol. v/s stable. no s/sof distress. will cont to monitor
[2020-01-31 08:00] VITALS: BP 107/52
--- NOTE | 2020-01-31 11:52 | NUR ---
Nutrition: Seen for weekly oral intake follow up. Pt continues with very high, consistent meal intakes. Averaging 80% of meals per the last 15 recorded meals. Last week, RD lowered Glucerna frequency from BID to daily as pt complained of too much volume w/ diuretic. Pt has been refusing supplement lately, so RD plans to discontinue altogether as pt w/ very adequate nutrition intake without. SSI dc'ed on 01/29 as pt was not requiring. BGs 62, 91-142 mg/dl the last 48 hrs, with only 1 outlier at 214 mg/dl last night. The last 5 days pt consistently weighing 115-120# (01/26-01/30); question if previous wt entry at 152# per 01/23 was ever accurate. Last BM 01/29. Encouraged ongoing food group balance. Helped pt modify future meal selections to avoid dry meats and replace with baked fish, etc. Remains low nutrition risk.
--- NOTE | 2020-01-31 12:42 | NUR ---
Sitting up in bed without s/o distress. Alert and orientated X4, conversive. States she did not sleep last night at all. Denies pain. 1l FIO2 per NC, states it helps keep her calm. Breath sounds clear t/o, bilaterally equal. Irregular HR auscultated. Color pink with brisk capillary refill and palpable peripheral pulses. +2 edema per lower extremities with L slightly >than R. Incision over L upper chest without reddness, drainage or pain. Yellow urine per toilet. Active bowel sounds over soft, flat abdomen. Ambulates with slow, steady gait with walker and gait belt. Eating meals in dining room with peers.
[2020-01-31 19:26] VITALS: BP 105/56
--- NOTE | 2020-02-01 00:39 | NUR ---
1900 ASSUMED CARE OF PT AFTER BEDSIDE REPORT 2044 ASSESSMENT COMPLETED, PT REFUSING TO WEAR IMMOBILIZER, STATES SHE WILL USE IT AT HOME, EDUCATED PT ON IMPORTANCE, BUT CONTINUES TO REFUSE, DENIES CHEST PAIN, EDEMA TO BLE CONTINUES, BUT PT WAS SITTING ON BEDSIDE WITH LEGS DANGLING. 0000PT REQUESTS MELATONIN TO SLEEP, GIVEN PER JAN, WILL CONTINUE WITH HOURLY ROUNDING
[2020-02-01 09:00] VITALS: BP 118/48
[2020-02-01 16:04] VITALS: BP 120/70
--- NOTE | 2020-02-01 18:51 | NUR ---
PATIENT ALERT AND ORIENTED AND COOPERTIVE WITH PLAN OF CARE. CONTINUE POC.
[2020-02-01 19:55] VITALS: BP 123/67
--- NOTE | 2020-02-02 03:42 | NUR ---
ASSUMED PT CARE AT 1900. PT UP TO TOILET WITH MINIMAL ASSISTANCE. HOPEFUL THAT EDEMA IN LEGS WILL GO DOWN SOON. DENIES PAIN, EXCEPT PACEMAKER SITE IS SENSITIVE TO TOUCH. PM MEDS GIVEN WELL PRN MELATONIN. DID NOT SLEEP MUCH THIS EVENING, ON SIDE OF BED READING MOST THE SHIFT. ANTICIPATING DISHCARGE ON THE .
[2020-02-02 05:57] LABS: HEMATOCRIT 30.3 % (37.0-47.0); HEMOGLOBIN 9.4 gm/dL (12.0-15.0); MCH 28.1 pg (26.0-34.0); MCHC 31.2 g/dL (28.0-37.0); MCV 90.1 fL (80.0-100.0); PLATELET COUNT 142 thou/uL (150-400); RBC 3.36 mil/uL (4.20-5.00); RDW 17.4 % (10.5-14.5); WBC 6.9 thou/uL (4.0-11.0)
[2020-02-02 05:59] LABS: CALCIUM 9.1 mg/dL (8.5-10.1); CREATININE 0.9 mg/dL (0.6-1.0); MAGNESIUM 1.2 mg/dL (1.8-2.4)
[2020-02-02 08:00] VITALS: BP 116/42
--- NOTE | 2020-02-02 09:13 | NUR ---
ASSUMED CARE AT 0700. PATIENT IS ALERT AND ORIENTED X4. PATIENT NOYOLA'S, CAR REPAIR SUPERVISOR ARE EQUAL. LUNGS ARE CLEAR. PATIENT HAS LEFT CHEST PACEMAKER. INCISION IS INTACT AND DRY. UP TO THE DINING ROOM FOR MEALS. FALL AND SAFETY PROTOCOLS IN PLACE. DENIES PAIN AT THIS TIME. CONTINUES TO PROGRESS TOWARDS D/C GOALS. WILL CONTINUE TO MONITER.
[2020-02-02 10:11] LABS: ABSOLUTE NEUTROPHILS 4.9 thou/uL (1.4-8.2)
[2020-02-02 10:12] LABS: ANISOCYTOSIS 1+; HYPOCHROMASIA 1+; POIKILOCYTOSIS 1+
[2020-02-02 21:10] VITALS: BP 136/64
--- NOTE | 2020-02-03 00:36 | NUR ---
PT ALERT AND ORIENTED X 4. AMB TO BR WITH WALKER AND ASSIST X 1 WITHOUT DIFFICULTY. 02 ON AT 1.5 L PER NC CONT. LEFT CHEST INCISION C/D/I. PT DENIES PAIN OR NAUSEA. MELATONIN GIVEN PER PT REQUEST FOR SLEEP. BED ALARM ON FOR SAFETY. PT APPEARS TO BE SLEEPING ON HOURLY ROUNDS.
[2020-02-03 07:45] VITALS: BP 127/60
--- NOTE | 2020-02-03 16:46 | NUR ---
ASSUMED CARE OF PT AT 0710. PT IS A&OX4. IS ON 1-2 L OF O2/NC AT HS & FOR COMFORT. IS STABLE. IS UP WITH STANDBY ASSIST, GB, WALKER. FALL PRECAUTIONS & HOURLY ROUNDING CONTINUED THIS SHIFT. DENIES PAIN. IS ON Q2H TURNS, BUT IS ABLE TO TURN SELF IN BED. IS CURRENTLY IN ROOM, SITTING UP IN BED. CALL LIGHT WITHIN REACH. LABS & VITALS REVIEWED. WILL CONTINUE TO MONITOR.
[2020-02-03 20:00] VITALS: BP 118/72
--- NOTE | 2020-02-04 02:54 | NUR ---
ASSUMED CARE AT APPROX 1900 EVENING 02/02. PT ALERT AND ORIENTED X4, DANGLING ON SIDE OF BED AT CHANGE OF SHIFT. PT IN GOOD MOOD STATING SHE HAD A GOOD DAY. 02 AT 1L PER N/C. PT TOOK HS MEDS WITH WATER TOLERATING WELL. PT APPEARS TO BE SLEEPING SOUNDLY WITH HOURLY ROUNDING CHECKS. BED ALARM ON AND CALL LIGHT IN REACH. WILL CONTINUE TO MONITOR.
[2020-02-04 08:00] VITALS: BP 123/50
--- NOTE | 2020-02-04 15:49 | EKG ---
[facility] [place] [address] ELECTROCARDIOGRAM REPORT Name: JOSHUA MCCLOUD Room #: 509-P ADM IN M.R.#: [id number] Admission: 01/24/20 Attend Phys: Russ Cruz MD Discharge: Date of : 41 Report #: [id number] THIS REPORT FOR: cc: Georgette West MD,Georgette Mauro,Kris Harper MD [facility] ~ THIS REPORT FOR: //name// [facility] Test Date: 2020-02-04 Test Time: 09:55:20 Pat Name: JOSHUA MCCLOUD Department: Room: 509 P Gender: F Road Traffic Controller: Liss GRACIA : 1945 Requested By: Kris Mauro Order Number: [id number] MD: Kris Mauro Measurements Intervals [place] Rate: 92 P: HI: QRS: 44 QRSD: 150 T: 173 QT: 422 QTc: 523 Interpretive Statements Atrial fibrillation Right bundle branch block Compared to ECG 01/17/2020 07:11:56 No significant changes Electronically Signed On 02-04-2020 15:47:54 CDT by Kris Mauro [email or web address] <ELECTRONICALLY SIGNED> By: Kris Mauro MD, [facility] 02/04/20 1547 [phone] Kris Mauro MD, [facility] /EPI
--- NOTE | 2020-02-04 17:33 | NUR ---
ASSUMED CARES AT 0700. PT AWAKE, ALERT AND ORIENTED*4. DENIES PAIN. TACHY AND HYPOTENSIVE DURING ACTIVITY AND PT REPORTED SOB WHICH RESOLVED WITH REST. ALL OTHER VITALS REMAIN STABLE. PACEMAKER SITE, REMAINS INTACT. PT PARTICIPATED IN ALL THERAPIES. UP WITH SBA, GB AND WALKER AND TOLERATED WELL. Q1H VISUAL CHECKS. CALL LIGGHT WITHIN REACH. FALL PRECAUTIONS IN PLACE
[2020-02-04 19:14] VITALS: BP 114/47
--- NOTE | 2020-02-04 23:39 | NUR ---
ASSUMED CARE OF PT AT 1900. PT IS A&OX4. IS 2L OF O2/NC. IS STABLE. IS UP MOD I IN ROOM. HOURLY ROUNDING MAINTAINED. DENIES PAIN. LABS & VITALS REVIEWED. PT IS CURRENLTY IN ROOM IN BED WATCHING TV. CALL LIGHT WITHIN REACH. WILL CONTINUE TO MONITOR.
--- NOTE | 2020-02-05 07:19 | HC ---
[facility] [place] [address] CONSULTATION Name: JOSHUA MCCLOUD Room #: 509-P ADM IN .R.#: [id number] Admission: 01/24/20 Attend Phys: Russ Cruz MD Discharge: Date of : 41 Report #: [id number] THIS REPORT FOR: cc: Georgette West MD,Terrell Galloway MD. PhD ~ CC: Russ West DATE OF SERVICE: 01/27/2020 NEUROBEHAVIORAL STATUS EXAM ATTENDING PHYSICIAN: Russ Cruz MD ELECTRONICS INSTRUCTOR: Terrell Bran, PhD CLINICAL PRESENTATION: The patient is a 74-year-old female admitted to the rehab unit for a comprehensive inpatient rehabilitation program. She was initially admitted to the hospital on 01/09/2020 with atrial fibrillation and developed problems with weakness, mental status changes, bradycardia and requiring a transient pacing. She was placed on IV amiodarone and underwent an cardioversion. Her conversion was difficult. The patient was diagnosed with sick sinus syndrome, was gradually extubated and has undergone permanent pacemaker placement. Mental status changes were attributed to toxic metabolic encephalopathy. Her assessment on admission to the rehabilitation unit included toxic metabolic encephalopathy, atrial fibrillation, status post failed cardioversion x3, pleural effusion, status post thoracentesis on 01/21/2020, sick sinus syndrome, status post permanent pacemaker, acute respiratory failure, which has resolved, bilateral lower extremity edema, sepsis, previous pneumonia, previous Klebsiella urinary tract infection, prior acute kidney insufficiency and ktuvv-wb-rmgemrj diastolic heart failure. A complete description of her medical condition and history can be found in her medical record. Neuropsychological consultation was requested to provide assistance in the assessment of cognitive and emotional status and provide recommendations and services. Prior to this most recent medical event, she was living independently in her own home. She has 3 children. 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 She is a high school graduate. She does not report any prior history of treatment for anxiety or depression. [address] [address] CONSULTATION Name: JOSHUA MCCLOUD María Room #: 509-P [facility] IN ..#: [id number] Admission: 01/24/20 Attend Phys: Russ Cruz MD Discharge: Date of : 41 Report #: [id number] TECHNIQUES UTILIZED: Clinical interview, review of medical records, staff consultation and behavioral observation, mini mental status exam 2 standard version and family interview -- daughter and verbal fluency assessment (category -- animals) and clock drawing. EXAMINATION FINDINGS: The patient was alert and cooperative with the assessment. She accurately described events surrounding her admission. She was able to call for 911 support prior to coming in the hospital. However, she was described as having been confused and disoriented. Her symptoms are reported to include difficulty with sleep and anxiety. She does not report problems with memory, word finding, appetite, or subjective feelings of depression. Her daughter feels like the patient is improving and almost back to normal. Her performance on the MMSE 2 brief version is within normal limits with a raw score of 15-16. Performance on the MMSE 2 standard version is 24/30, which is at the 14th percentile and a T score of 39. The patient was 1/5 for serial 7's, 2/2 for naming, 1/1 for repetition, 3/3 for auditory comprehension. She could read and follow single command and write a sentence. The patient was unable to accurately copy a simple geometric design. Brief category fluency was at the 12th percentile, which is low average. The patient was able to draw a clock and set the hands at a designated time. The patient appears to be presenting with deficits in sustained concentration and visual spatial construction. DIAGNOSTIC IMPRESSION: Mild neurocognitive disorder, unspecified, without behavior disorder. Adjustment disorder with anxious mood. RECOMMENDATIONS: The patient will likely require increased assistance in the management of medication, finances and nutrition. A followup neuropsychological evaluation would also be of benefit to clarify cognitive functioning. She reports having increased anxiety, which is amplified currently. The use of relaxation techniques and breathing strategies can be of assistance in helping her manage anxiety. I reviewed with her and daughter, a relaxation technique to help with management of anxiety. Thank you very much for allowing me to provide the consultation on this patient. <ELECTRONICALLY SIGNED> By: Terrell Bran, PhD 02/05/2019 1722 28 Terrell Bran, PhD /nt
[2020-02-05 07:30] VITALS: BP 116/73
--- NOTE | 2020-02-05 11:27 | NUR ---
ASSUMED CARE AT 0700. PATIENT IS ALERT AND ORIENTED X4. PATIENT NOYOLA, CUE WORKER ARE EQUAL. LUNGS ARE CLEAR AND DEMINISHED. PATIENT USES 02 AT 1.5 L PER N/C AT NOC. ABD IS SOFT WITH BSX4. PATIENT IS MOD/I IN ROOM WITH WALKER. PATIENT IS UP IN DINING ROOM FOR MEALS. PATIENT IS UP WITH ASSIST OF 1 WITH WALKER IN [place] WITH THERAPY. FALL AND SAFETY PROTOCOLS IN PLACE. DENIES PAIN AT THIS TIME. WILL CONTINUE TO MONITOR.
--- NOTE | 2020-02-05 12:28 | NUR ---
team meeting, recommendation: mod I in room with walker. will need fww, [facility] ( pt, ot, st, nursing), family to initial assist with pills and bills. no driving until follow up with primary care.
--- NOTE | 2020-02-05 16:14 | NUR ---
FAXED REFERRAL TO [facility] SPOKE WITH SARAI IN INTAKE SHE RECEIVED REFERRAL AND CAN ACCEPT AT DC. ANTICIPATE DC TOMORROW 02/05.
[2020-02-05 16:15] VITALS: BP 116/73
[2020-02-05 16:17] VITALS: BP 116/73
[2020-02-05] MEDS ORDERED: ELIQUIS5 MG PO (16:41)
[2020-02-05 19:26] VITALS: BP 117/50
--- NOTE | 2020-02-06 02:12 | NUR ---
PT CARE ASSUMED AT 1900 WITH PT SITTING BY SIDE OF BED DOING WORD PUZZLE.PT IS UP AD [place] PER PT/OT.PT IS DUE FOR D/C HOME TODAY .PT IS ACCUCHECK BID .PT DENIED PAIN.PT APPEARED TO BE IN NO DISTRESS.WILL CONTINUE TO MONITOR PER POC
[2020-02-06 08:00] VITALS: BP 120/56
[2020-02-06 08:34] VITALS: BP 120/56
[2020-02-06] MEDS ORDERED: MELATONIN5 M1 PO (09:47)
[2020-02-06] MEDS ORDERED: PACERONE 200 M200 M1 PO ×2 (09:47→09:49)
[2020-02-06] MEDS ORDERED: ATENOLOL 50MG T50 M1 PO ×2 (09:47→09:49)
--- NOTE | 2020-02-06 11:19 | NUR ---
PATIENT TO D/C HOME TODAY, PATIENT IN ROOM ALREADY PERFORMED DRESSING. REPORTS NO CONCERNS WITH ABILITIES. POLITELY DECLINES FURTHER ADL INTERVENTIONS.
--- NOTE | 2020-02-06 12:34 | NUR ---
ASSUMED CARE AT 0700, PT A&O X 4, NO ACUTE DISTRESS DURING SHIFT. VSS O2 ON RA. MOD-I IN ROOM. PT DENIES ANY PAIN OR DISCOMFORT. PACEMAKER TO L CHEST. BG BID, TOLERATES MEDS WHOLE WITH WATER. BLE EDEMA +1. CONTINENT OF B&B, BM 02/04/20. DISCHARGE CRITICAL ACCESS HOSPITAL FOR TODAY. PT SITTING IN CHAIR WITH LEGS ELEVATED, CALL LIGHT WITHIN REACH, WILL CONTINUE TO MONITOR PER POC.
--- NOTE | 2020-02-06 18:35 | NUR ---
PATIENT DISCHARGED FROM HOSPITAL TODAY. DISCHARGE EDUCATION DISCUSSED WITH PATIENT AND WITH SON VIA TELEPHONE. BOTH EXPRESSED UNDERSTANDING. SCRIPTS FAXED TO PT PHARMACY OF CHOICE. PT HAD NO QUESTIONS OR CONCERNS BEFORE DISCHARGE. PT GOING HOME WITH HH. PT LEFT UNIT AROUND 1650 WITH TRANSPORT TO EMERGENCY ENTRANCE WHERE SHE WAS PICKED UP BY SON.
== END 2020-02-06 16:50 | disposition home health service (06) | DRG 91 ==
LOC: ENTRNSPT 02-06 16:17
PROVIDERS: Internal Medicine; Nurse Practitioner; Nurse Practitioner Family; ADMIT Physical Medicine & Rehabilitation
DX: G92 Toxic encephalopathy (principal); J96.00 Acute respiratory failure, unspecified whether with hypoxia or hypercapnia; A41.9 Sepsis, unspecified organism; I50.33 Acute on chronic diastolic (congestive) heart failure; J18.9 Pneumonia, unspecified organism; J90 Pleural effusion, not elsewhere classified; I48.19 Other persistent atrial fibrillation; N39.0 Urinary tract infection, site not specified; N17.9 Acute kidney failure, unspecified; I49.5 Sick sinus syndrome; Z95.0 Presence of cardiac pacemaker; G31.84 Mild cognitive impairment of uncertain or unknown etiology; F43.22 Adjustment disorder with anxiety; I11.0 Hypertensive heart disease with heart failure; E11.9 Type 2 diabetes mellitus without complications; B96.1 Klebsiella pneumoniae [K. pneumoniae] as the cause of diseases classified elsewhere; I07.1 Rheumatic tricuspid insufficiency; R53.81 Other malaise
CPT/HCPCS: 10112

== ENCOUNTER → 2020-05-29 | Outpatient (CLI) | payer OTHER, MEDICARE ==
[~2020-05-29] MED LIST changes: +MELATONIN5 M1 PO
== END ==
LOC: SJCVC 10:39
PROVIDERS: ATTEND Internal Medicine
DX: I45.10 Unspecified right bundle-branch block (principal); R94.31 Abnormal electrocardiogram [ECG] [EKG]; I48.0 Paroxysmal atrial fibrillation; I11.0 Hypertensive heart disease with heart failure; I50.32 Chronic diastolic (congestive) heart failure; I36.1 Nonrheumatic tricuspid (valve) insufficiency; E78.5 Hyperlipidemia, unspecified; E11.9 Type 2 diabetes mellitus without complications; R76.8 Other specified abnormal immunological findings in serum; Z79.899 Other long term (current) drug therapy; Z79.84 Long term (current) use of oral hypoglycemic drugs; Z82.49 Family history of ischemic heart disease and other diseases of the circulatory system; Z87.891 Personal history of nicotine dependence

== ENCOUNTER 2020-07-07 13:47 | Emergency (ER) | payer OTHER, MEDICARE ==
[~2020-07-07] VITALS: Ht 154.9 cm; Wt 52.6 kg
[2020-07-07] MEDS ORDERED: ELIQUIS2.5 MG PO (14:13)
[2020-07-07 15:56] LABS: HEMATOCRIT 24.2 % (37.0-47.0); HEMOGLOBIN 7.5 gm/dL (12.0-15.0); MCH 21.5 pg (26.0-34.0); MCHC 31.1 g/dL (28.0-37.0); RBC 3.52 mil/uL (4.20-5.00); RDW 18.6 % (10.5-14.5)
[2020-07-07 16:39] LABS: CALCIUM 7.1 mg/dL (8.5-10.1); CREATININE 1.3 mg/dL (0.6-1.0)
[2020-07-07 16:41] LABS: POTASSIUM 2.9 mmol/L (3.5-5.1)
[2020-07-07 16:46] LABS: ALBUMIN 2.9 g/dL (3.4-5.0); TOTAL BILIRUBIN 0.5 mg/dL (0.2-1.0)
[2020-07-07 20:11] VITALS: BP 110/69
--- NOTE | 2020-07-09 14:07 | PATH ---
[facility] [address] [place] [address] PATHOLOGY RPT PROCEDURE Name: ASHLEY MCCLOUD Room #: DEP PAPO Blake#: [id number] Admission: 07/07/20 Date of : 41 Discharge: 07/07/20 Report #: [id number] Path Case #: [id number] [facility] Accession Number: [id number] . 01 Material submitted: . esophagus - BX OF ESOPHAGUS . 01 Clinical history: . R/O EOE, OBJECT LODGED IN ESOPHAGUS . 02 Diagnosis: Squamous mucosa, esophagus, rule out EOE, endoscopic biopsy: - Changes compatible with reflux esophagitis showing an occasional eosinophil. - Negative for eosinophilic esophagitis. - Negative for dysplasia or malignancy. (IUV:pit 07/09/2020) QTP 07/09/2020 1039 Local . 02 Electronically signed: . Yary Montgomery MD, Pathologist NPI- [id number] . 01 Gross description: . The specimen is received in formalin, labeled "Ashley Mccloud, biopsy of esophagus to R/O EOE". Received are three segments of pale ventura soft tissue ranging in size from 0.2 to 1.0 cm in maximum dimensions. The specimen is submitted entirely in cassette A1. (CAA; 07/08/2020) QA/QA 07/08/2020 1606 Local . 02 Pathologist provided ICD-10: T18.0XXA, R13.10 . 02 CPT . 639607 Specimen Comment: A courtesy copy of this report has been sent to [phone] Specimen Comment: [phone] Specimen Comment: Report sent to / DR MAURICIO Performed at: [address] [id number] MD Marc Menchaca MD Phone: [phone] Performed at: [address] [id number] [address] [address] PATHOLOGY RPT PROCEDURE Name: ASHLEY MCCLOUD Room #: DEP PAPO Blake#: [id number] Admission: 07/07/20 Date of : 41 Discharge: 07/07/20 Report #: [id number] Path Case #: [id number] MD Yary Montgomery MD Phone: [phone]
== END 2020-07-07 20:12 | disposition home or self-care (01) ==
LOC: ER 13:47
PROVIDERS: Nurse Practitioner; Student in an Organized Health Care Education/Training Program
DX: T18.128A Food in esophagus causing other injury, initial encounter (principal); E87.6 Hypokalemia; D64.9 Anemia, unspecified; R11.10 Vomiting, unspecified; I49.5 Sick sinus syndrome; I48.91 Unspecified atrial fibrillation; I10 Essential (primary) hypertension; E11.9 Type 2 diabetes mellitus without complications; Z87.891 Personal history of nicotine dependence; Z79.899 Other long term (current) drug therapy; Z95.0 Presence of cardiac pacemaker; X58.XXXA Exposure to other specified factors, initial encounter; Y93.89 Activity, other specified; Y92.098 Other place in other non-institutional residence as the place of occurrence of the external cause; Y99.8 Other external cause status
CPT/HCPCS: 62110; 62900

== ENCOUNTER → 2020-07-23 | Outpatient (CLI) | payer OTHER, MEDICARE ==
[~2020-07-23] MED LIST changes: +ELIQUIS2.5 MG PO
== END ==
LOC: LAB 08:49
PROVIDERS: ATTEND Internal Medicine Gastroenterology
DX: Z01.812 Encounter for preprocedural laboratory examination (principal); Z20.828 Contact with and (suspected) exposure to other viral communicable diseases

== ENCOUNTER → 2020-07-29 | Outpatient (CLI) | payer OTHER, MEDICARE | END | disposition home or self-care (01) | LOC: GI 08:37 | PROVIDERS: ATTEND Internal Medicine Gastroenterology | DX: R13.10 Dysphagia, unspecified (principal); K22.0 Achalasia of cardia; D64.9 Anemia, unspecified; I48.91 Unspecified atrial fibrillation; Z79.899 Other long term (current) drug therapy; Z98.890 Other specified postprocedural states; Z95.0 Presence of cardiac pacemaker ==

== ENCOUNTER 2020-08-24 16:51 | Inpatient (IN) | payer OTHER, MEDICARE ==
[~2020-08-24] VITALS: Ht 154.9 cm; Wt 45.5 kg
[2020-08-24 16:52] VITALS: BP 128/52
[2020-08-24 17:29] LABS: HEMATOCRIT 26.1 % (37.0-47.0); HEMOGLOBIN 7.5 gm/dL (12.0-15.0); MCH 19.6 pg (26.0-34.0); MCHC 28.9 g/dL (28.0-37.0); MCV 67.9 fL (80.0-100.0); RBC 3.84 mil/uL (4.20-5.00); RDW 22.6 % (10.5-14.5); WBC 11.9 thou/uL (4.0-11.0)
[2020-08-24 17:39] LABS: CALCIUM 6.5 mg/dL (8.5-10.1); CREATININE 1.8 mg/dL (0.6-1.0)
[2020-08-24 17:44] LABS: POTASSIUM 2.7 mmol/L (3.5-5.1)
[2020-08-24 17:51] LABS: APTT 32.9 Seconds (24.5-32.8); INR 1.2; PROTIME 12.5 Seconds (9.3-11.4)
[2020-08-24] MEDS ORDERED: IRON325 M1 PO (18:33)
[2020-08-24] MEDS ORDERED: PRILOSEC OTC20 MG PO (18:33)
[2020-08-24 18:48] VITALS: BP 126/55
[2020-08-24 19:29] LABS: % SATURATION 3 % (20-39); IRON 12 ug/dL (50-170); TIBC 363 ug/dL (250-450)
[2020-08-24 19:34] VITALS: BP 124/56
[2020-08-24 19:55] LABS: FOLIC ACID 9.1 ng/mL (8.6-58.9)
[2020-08-24 20:00] VITALS: BP 127/49
--- NOTE | 2020-08-24 22:00 | NUR ---
PT ADMITTED TO THE UNIT AT 1999. PT IS A/O X4 AND IS UP WITH SBA DUE TO WEAKNESS. PT STATED SHE USED A WALKER AT HOME TO GET INTO THE CAR TO COME TO THE HOSPITAL WITH HER SON. SON IS ASSIGNED DESIGNATED VISITOR. CHARTED. PT IS ON ROOM AIR, MST- AFIB ON THE MONITOR. VOIDS PER TOILET, C/O DIARREA YESTERDAY WITH DARKENED STOOL IN COLOR. PT VOICES CONCERNS OF HGB LEVELS AND HOPES TO FIGURE OUT WHAT IS CAUSING THE LEVELS TO LOWER. SMALL WOUND TO RIGHT HIP. PICTURE TAKEN AND PLACED IN CHART. CURRENTLY ON CLEAR LIQ DIET PER DR ORDERS. FALL PRECAUTIONS ARE IN PLACE, CALL LIGHT IS WITHIN REACH. ADMISSION COMPLETED. AT THIS TIME PT IS LYING IN HER BED AND APPEARS TO BE SLEEPING. WILL CONTINUE TO MONITOR.
[2020-08-25 06:12] LABS: HEMATOCRIT 21.1 % (37.0-47.0); MCH 19.8 pg (26.0-34.0); MCHC 29.2 g/dL (28.0-37.0); MCV 67.8 fL (80.0-100.0); RBC 3.11 mil/uL (4.20-5.00); RDW 22.8 % (10.5-14.5); WBC 9.3 thou/uL (4.0-11.0)
[2020-08-25 06:17] LABS: HEMOGLOBIN 6.2 gm/dL (12.0-15.0)
[2020-08-25 06:20] LABS: CREATININE 1.9 mg/dL (0.6-1.0); POTASSIUM 3.3 mmol/L (3.5-5.1)
[2020-08-25 06:25] LABS: CALCIUM 5.9 mg/dL (8.5-10.1)
--- NOTE | 2020-08-25 07:27 | EKG ---
[facility] [place] [address] ELECTROCARDIOGRAM REPORT Name: JOSHUA MCCLOUD Room #: 454-P ADM IN M.R.#: [id number] Admission: 08/24/20 Attend Phys: Alphonse Cross MD Discharge: Date of : 41 Report #: [id number] THIS REPORT FOR: cc: Georgette West MD,Georgette Mauro,Kris Harper MD [facility] ~ THIS REPORT FOR: //name// [facility] ED Test Date: 2020-08-24 Test Time: 17:55:03 Pat Name: JOSHUA MCCLOUD Department: Room: [facility] Gender: F Grape Cutter: : 1945 Requested By: Miles Mahan Order Number: [id number] MD: Kris Mauro Measurements Intervals [place] Rate: 93 P: MI: QRS: -40 QRSD: 159 T: 188 QT: 472 QTc: 588 Interpretive Statements Atrial fibrillation Right bundle branch block Probable inferior infarct, age indeterminate Baseline wander in lead(s) V1 Compared to ECG 02/04/2020 09:55:20 Inferior Q waves are more prominent Electronically Signed On 08-25-2020 7:27:17 CDT by Kris Mauro [email or web address] <ELECTRONICALLY SIGNED> By: Kris Mauro MD, FACC 08/25/20 [phone] Kris Mauro MD, FACC /EPI
[2020-08-25 09:00] VITALS: BP 133/75
[2020-08-25 09:54] VITALS: BP 122/61; BP 130/69
[2020-08-25 12:12] LABS: ALBUMIN 2.8 g/dL (3.4-5.0); PHOSPHORUS 4.6 mg/dL (2.5-4.9)
--- NOTE | 2020-08-25 15:33 | NUR ---
PT ADMITTED RELATED TO ABNORMAL HGB, WEAKNESS. CM REVIEWED CHART AND SPOKE WITH CARE TEAM. CM ATTEMPTED MULTIPAL PC'S TO PT ROOM THIS DAY. PT APPEARES TO BE A&O X4. CM ROLE INTRODUCED. PT INDICATED SHE WAS GETTING BLOOD AND WANTED CM T OCALL HER BACK, CM CALLED BACK AND PT INDICATED SHE WAS ON HER WAY TO USE THE BATHROOM. CHART INDICATES THAT PT RESIDES ALONE IN A HOUSE WITH 3 STEPS TO ENTER. IT LOOKS LIKE PT HAS A FWW FOR USE AT HOME. LOOKS LIKE PT HAD USED [facility] IN PAST. CM TO FOLLOW INDICATED WITH DC PLANNING. CARE TEAM INDICATED THAT PT IS TO HAVE A COLONOSCOPY DONE TOMORROW. CM TO FOLLOW INDICATED WITH DC PLANNING.
--- NOTE | 2020-08-25 16:59 | NUR ---
PT A&OX4, VSS, DENIES PAIN. PATIENT HAVING MULTIPLE SMALL SOFT BM NO BLOOD NOTICED. PT RECEIVED 1 UNIT OF BLOOD, MAGNESIUM AND CALCIUM TODAY. PATIENT STATES SHE FEELS SOA, DOCTOR NOTIFIED, VSS, NO SIGNS OF DISTRESS. PATIENT PLACED ON TWO LITER OXYGEN FOR COMFORT AND IS TAKING SLOW DEEP BREATHS. PATIENT SCHEDULED FOR COLONOSCOPY TOMORROW 08/26. PATIENT REMAINS ON CLEAR LIQUIDS AND TOLERATING. DRESSING CHANGE TO RIGHT HIP COMPLETE. DOCTOR IS OK WITH BMP IN AM. WILL CONTINUE TO MONITOR.
[2020-08-25 17:33] LABS: HEMATOCRIT 28.2 % (37.0-47.0)
[2020-08-25 17:37] LABS: HEMOGLOBIN 8.3 gm/dL (12.0-15.0)
[2020-08-25 20:00] VITALS: BP 134/67
[2020-08-26 03:06] LABS: 25-HYDROXY TOTAL 28.5 ng/mL (30.0-100.0)
--- NOTE | 2020-08-26 05:23 | NUR ---
Assumed pt care at 1900. A/OX4,VSS. C/o some abd cramping just before having BMs but pain gets better after BMs. Pt was hesitant to complete bowel prep @ HS;only drunk half the Miralax ordered by midnight. Having small loose stools at this time. AFIB on telemetry. Pt's up with SBA to BSC,reports feeling a little stronger after the blood transfusion. Pt has been NPO since midnight;IVF infusing via LAC w/o any problems. Fall precautions in place,reminded to call for help.Resting w/o distress,oxygen in place for comfort per pt request.
[2020-08-26 05:53] LABS: HEMATOCRIT 26.1 % (37.0-47.0); HEMOGLOBIN 7.9 gm/dL (12.0-15.0); MCH 21.2 pg (26.0-34.0); MCHC 30.3 g/dL (28.0-37.0); MCV 69.9 fL (80.0-100.0); RBC 3.73 mil/uL (4.20-5.00); RDW 23.4 % (10.5-14.5); WBC 9.6 thou/uL (4.0-11.0)
[2020-08-26 07:26] LABS: ALBUMIN 2.7 g/dL (3.4-5.0); CALCIUM 6.6 mg/dL (8.5-10.1); CREATININE 1.3 mg/dL (0.6-1.0); MAGNESIUM 1.5 mg/dL (1.8-2.4); PHOSPHORUS 4.2 mg/dL (2.5-4.9); POTASSIUM 3.2 mmol/L (3.5-5.1)
[2020-08-26 07:38] VITALS: BP 140/66
--- NOTE | 2020-08-26 08:34 | NUR ---
PT HAD FORMED BM. PT SCHEDULED FOR COLONOSCOPY THIS AFTERNOON. CALLED AND TALKED WITH GI LAB JAIME FORMED BM. STATES THAT SHE WILL TALK WITH THE DRThiago AND GET BACK TO ME.
--- NOTE | 2020-08-26 14:16 | NUR ---
CARE TEAM INDICATED THAT PT WAS TO HAVE A COLONOSCOPY THIS DAY BUT HER CLEAN OUT WASN'T SUFFICIENT. IT LOOKS THOUGH PT WILL HAVE PROCEDURE DONE TOMORROW. CM TO FOLLOW INDIATED WITH DC PLANNING.
--- NOTE | 2020-08-26 15:30 | NUR ---
PT UP TO BSC. PT HAD BOWEL MOVEMENT. WHEN HELPING PT CLEAN UP NOTICED HER HEMHORRID DOES NOT LOOK TO BE A HEMMORRIOD. LOOKS TO BE A PROLAPSED RECTUM. CALLED AND NOTIFIED ANDERS FORBES WITH GI. SHE STATES NO FURTHER ORDERS AT THIS TIME. PT ABLE TO DO COLONOSCOPY TOMORROW.
[2020-08-26 19:22] VITALS: BP 120/66
--- NOTE | 2020-08-27 06:45 | NUR ---
Assumed pt care at 1900. Pt A/OX4,VSS,denies pain on assessment. Pt did complete bowel prep with 1/2 dose of miralax as directed,voiding small light yellowish BMs at this time. Up with SBA to BSC. Has been NPO since midnight for possible colonoscopy today. Pt slept on the recliner,encouraged to elavate extremities d/t to edema but declined. Verbalizes sleeping well for the first time,fall precautions in place.
[2020-08-27 07:45] VITALS: BP 123/52
[2020-08-27 10:35] LABS: ALBUMIN 2.8 g/dL (3.4-5.0); CALCIUM 7.2 mg/dL (8.5-10.1); CREATININE 1.1 mg/dL (0.6-1.0); PHOSPHORUS 3.4 mg/dL (2.5-4.9); POTASSIUM 3.5 mmol/L (3.5-5.1)
[2020-08-27 15:05] LABS: BE(vivo) -3.2 mmol/L (-2 to +3); HCO3 24.5 mmol/L (22.0-26.0); PCO2 58.3 mmHg (35.0-45.0); PO2 144.4 mmHg (80.0-100.0); sO2 98.4 % (92.0-98.0)
[2020-08-27 15:05] LABS: HEMATOCRIT 31.1 % (37.0-47.0); MCH 21.1 pg (26.0-34.0); MCV 72.8 fL (80.0-100.0); RBC 4.27 mil/uL (4.20-5.00); RDW 22.8 % (10.5-14.5); WBC 14.4 thou/uL (4.0-11.0)
[2020-08-27 15:06] LABS: pH 7.242 (7.360-7.450)
[2020-08-27 15:15] LABS: CREATININE 1.1 mg/dL (0.6-1.0); POTASSIUM 3.9 mmol/L (3.5-5.1)
--- NOTE | 2020-08-27 15:40 | NUR ---
ASSUMED CARE AT SHIFT CHANGE. PT A/O X 4, UP WITH SBA TO BSC. DENIES PAIN EXPECT HEADACHE THIS AM, RELIEVED WITH TYLENOL.PT WENT FOR COLONOSCOPY AROUND 1315. POST PROCEDURE PT GOING TO ICU FOR RESP FAILURE. REPORT GIVEN TO NADYA COOPER.
--- NOTE | 2020-08-27 15:55 | NUR ---
PT WENT FOR COLONOSCOPY THIS DAY. IT HAD BEEN INDICATED THAT PT IS TO TRANSFER TO ICU POST PROCEDURE. CM ISN'T AWARE OF ROOM ASSIGNMENT OF THIS NOTE. CM TO FOLLOW INDICATED WITH DC PLANNING.
--- NOTE | 2020-08-27 17:03 | NUR ---
PT PLACED ON HOLD FROM P.T. DUE TO TX TO ICU FOR RESP FAILURE S/P COLONOSCOPY. REQUEST NEW P.T. ORDERS WHEN APPROPRIATE.
[2020-08-27 20:00] VITALS: BP 115/56
[2020-08-27 21:00] VITALS: BP 120/53
[2020-08-27 22:00] VITALS: BP 126/60
[2020-08-27 23:00] VITALS: BP 126/65
[2020-08-28] VITALS (24 sets, daily range): BP systolic 108–143; BP diastolic 44–73
[2020-08-28 06:04] LABS: ALBUMIN 2.6 g/dL (3.4-5.0); CALCIUM 7.6 mg/dL (8.5-10.1); CREATININE 1.4 mg/dL (0.6-1.0); MAGNESIUM 2.1 mg/dL (1.8-2.4); PHOSPHORUS 5.1 mg/dL (2.5-4.9); POTASSIUM 3.4 mmol/L (3.5-5.1)
--- NOTE | 2020-08-28 07:10 | NUR ---
RECEIVED REPORT FROM KENNETH DAY SHIFT RN.PATIENT A/O X 4.COMPLAIN OF GAS PAIN.SIMETHICONE GIVEN.PATIENT HAD BM X 2 THIS SHIFT.STOOL SAMPLE FOR OCCULT SENT TO LAB.PATIENT STILL COMPLAIN OF ABDOMINAL PAIN EVEN AFTER SIMETHICONE WAS GIVEN AND AFTER 2 BM'S.MONITOR SHOWS AFIB.POC CONTINUED.
--- NOTE | 2020-08-28 07:13 | NUR ---
PATIENT TRANSFERRED TO ICU AFTER HER COLONSCOPY DUE TO A CHANGE IN MEDICAL STATUS. WILL NEED NEW ORDERS ONCE MEDICALLY APPROPRIATE.
[2020-08-28 09:14] LABS: HEMATOCRIT 39.8 % (37.0-47.0); MCH 20.6 pg (26.0-34.0); MCHC 27.6 g/dL (28.0-37.0); MCV 74.4 fL (80.0-100.0); RBC 5.34 mil/uL (4.20-5.00); RDW 23.1 % (10.5-14.5); WBC 18.9 thou/uL (4.0-11.0)
[2020-08-28 11:43] LABS: HEMATOCRIT 35.3 % (37.0-47.0); MCH 20.8 pg (26.0-34.0); MCHC 28.5 g/dL (28.0-37.0); MCV 73.1 fL (80.0-100.0); RBC 4.82 mil/uL (4.20-5.00); WBC 17.6 thou/uL (4.0-11.0)
--- NOTE | 2020-08-28 11:52 | NUR ---
0830 PT HAD MODERATE/LARGE SHADI RED BLOODY OUTPUT WITH CLOTS, NOTIFIED GI TELEGRAPH OFFICE ROUTE AIDE, STAT HEMOGRAM ORDERED. PT ALSO VOMITED X1, NO BLOOD, ZOFRAN GIVEN. 0915 KACEY AT BEDSIDE. 0930 SPOKE WITH SON-YESSY BLAKE GIVEN, SON AGREES WITH POC. 1000 SMALL AMOUNT OF BLOODY STOOL ON CHUX. 1150 DR P[place]TMAN AND ANDERS AT BEDSIDE. PT STILL HAVING NAUSEA NO MORE VOMITING EPISODE, ORDERS FOR COMPAZINE ACKNOWLEDGED.
[2020-08-28 18:08] LABS: HEMATOCRIT 33.5 % (37.0-47.0); HEMOGLOBIN 9.5 gm/dL (12.0-15.0); MCH 20.9 pg (26.0-34.0); MCHC 28.5 g/dL (28.0-37.0); MCV 73.4 fL (80.0-100.0); RBC 4.56 mil/uL (4.20-5.00); WBC 16.2 thou/uL (4.0-11.0)
--- NOTE | 2020-08-28 23:48 | NUR ---
ATTEMPTED TO CALL REPORT TO CCU NURSE.
[2020-08-29 00:27] VITALS: BP 115/44
[2020-08-29 00:57] LABS: HEMATOCRIT 32.1 % (37.0-47.0); HEMOGLOBIN 9.1 gm/dL (12.0-15.0); MCH 21.1 pg (26.0-34.0); MCHC 28.5 g/dL (28.0-37.0); MCV 73.9 fL (80.0-100.0); RBC 4.34 mil/uL (4.20-5.00); RDW 23.3 % (10.5-14.5); WBC 16.8 thou/uL (4.0-11.0)
[2020-08-29 03:19] VITALS: BP 107/52
--- NOTE | 2020-08-29 08:06 | NUR ---
pt was transferred from icu around 0000 via recliner, pt is awake, alert and orientedx3, afib on the monitor, tachycardic at 110, assessments as charted, on 4L nasal canula, o2sats stable,hgb was was 9.1, vss, denied pain or sob, no bleeding noted, pt tranferred to bed max assist, denied having concerns, pt rounded around 0315, pt sleeping vss, pt went alie of 34, then asystole, code blue called; pt found unresponsive and pulseless, cpr started, code team arrived and took over, pt was pronounced at 0518; family notified, son myranda came in, mtn notified, all consults called, body was released to hospital security and belongings released to family
--- NOTE | 2020-08-29 16:06 | PATH ---
[facility] [address] [place] [address] PATHOLOGY RPT PROCEDURE Name: ASHLEY MCCLOUD María Room #: 200-I DIS IN M.R.#: [id number] Admission: 08/24/20 Date of : 41 Discharge: 08/29/20 Report #: [id number] Path Case #: [id number] [facility] Accession Number: [id number] . 01 Material submitted: . colon - RANDOM COLON BX . 01 Clinical history: . R/O COLITIS, ACUTE POSTHEMORRHAGIC ANEMIA, ACUTE KIDNEY FAILURE . 02 Diagnosis: Large intestinal mucosa, random colon rule out colitis, endoscopic biopsy: - Cijs-jd-bcefewts active colitis with crypt abscesses, see comment. - Negative for dysplasia or malignancy. . (IUV:mml; 08/29/2020) QLM 08/29/2020 1255 Local . 02 Comment: Sections of the colonic mucosa designated "random colon" show focal cryptitis, and a moderately cellular lamina propria composed predominantly of lymphocytes and plasma cells and occasional eosinophils. Surface ulceration is not identified. There are no crypt abscesses, granulomas or viral inclusions. The process affects all the fragments with a similar intensity. Given the description, the differential diagnosis includes active colitis of either self-limited etiology, or infectious-type etiology, early inflammatory bowel disease, acute diverticulitis, as well as medication or drug-induced colitis. Please correlate with clinical as well as endoscopic findings. . (IUV:mml; 08/29/2020) . 02 Electronically signed: . Yary Montgomery MD, Pathologist NPI- [id number] . 01 Gross description: . The specimen is received in formalin, labeled "Ashley Mccloud, enmanuel colon BX" and consists of multiple fragments of ventura tissue measuring 1.1 x 0.6 x 0.3 cm in aggregate which are entirely submitted in A1. (SDY; 08/28/2020) SYU/SYU 08/28/2020 1626 Local . 02 Pathologist provided ICD-10: K52.9, K63.[address] [facility] . [address] [address] PATHOLOGY RPT PROCEDURE Name: ROGERSASHLEY Daniel Room #: 200-I DIS IN M.R.#: [id number] Admission: 08/24/20 Date of : 41 Discharge: 08/29/20 Report #: [id number] Path Case #: [id number] Specimen Comment: A courtesy copy of this report has been sent to [phone] Specimen Comment: [phone], Specimen Comment: Report sent to ,DR MAURICIO / DR JUDD Performed at: [address], [place] [id number] MD Marc Menchaca MD Phone: [phone] Performed at: [address] [id number] MD Yary Montgomery MD Phone: [phone]
== END 2020-08-29 05:18 | DRG 377 ==
LOC: ER 16:51 → 4W 18:41 → EROBS 18:41 → ICU 18:41 → 4W 19:44 → ICU 08-27 16:41 → 2N 08-29 00:53
PROVIDERS: Anesthesiology; Emergency Medicine; Internal Medicine; Internal Medicine Gastroenterology; Internal Medicine Nephrology; Nurse Practitioner; ADMIT Hospitalist; ATTEND Hospitalist
PROC: 30233N1 Transfusion of Nonautologous Red Blood Cells into Peripheral Vein, Percutaneous Approach (ICD-10-PCS; principal; 2020-08-25)
PROC: 5A09357 Assistance with Respiratory Ventilation, Less than 24 Consecutive Hours, Continuous Positive Airway Pressure (ICD-10-PCS; 2020-08-27)
PROC: 0DBK8ZX Excision of Ascending Colon, Via Natural or Artificial Opening Endoscopic, Diagnostic (ICD-10-PCS; 2020-08-27)
PROC: 5A12012 Performance of Cardiac Output, Single, Manual (ICD-10-PCS; 2020-08-29)
DX: K57.31 Diverticulosis of large intestine without perforation or abscess with bleeding (principal); N17.0 Acute kidney failure with tubular necrosis; E43 Unspecified severe protein-calorie malnutrition; J96.90 Respiratory failure, unspecified, unspecified whether with hypoxia or hypercapnia; K55.9 Vascular disorder of intestine, unspecified; D62 Acute posthemorrhagic anemia; I48.20 Chronic atrial fibrillation, unspecified; I13.0 Hypertensive heart and chronic kidney disease with heart failure and stage 1 through stage 4 chronic kidney disease, or unspecified chronic kidney disease; K22.0 Achalasia of cardia; Z20.828 Contact with and (suspected) exposure to other viral communicable diseases; E87.6 Hypokalemia; I49.5 Sick sinus syndrome; E83.51 Hypocalcemia; E83.42 Hypomagnesemia; G47.00 Insomnia, unspecified; K62.3 Rectal prolapse; I50.9 Heart failure, unspecified; D72.829 Elevated white blood cell count, unspecified; E11.22 Type 2 diabetes mellitus with diabetic chronic kidney disease; I46.9 Cardiac arrest, cause unspecified; N18.9 Chronic kidney disease, unspecified; Z95.0 Presence of cardiac pacemaker; Z87.891 Personal history of nicotine dependence; Z79.899 Other long term (current) drug therapy
CPT/HCPCS: 10040; 10045; 10078; 62110; 62900; 70005